=== PATIENT | female | born 1980 | race Caucasian/White ===

== ENCOUNTER 2025-05-29 13:56 | Outpatient (AMB) | payer OTHER, MEDICAID, SELFPAY ==
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
[2025-05-29 14:04] VITALS: BP 114/72; PULSE 73; RESP 16; TEMP 36.2; O2SAT 98; BMI 32.7
--- OUTSIDE RECORDS SUMMARY | 2025-05-30 03:26 | XMS_ITS | Continuity of Care Document ---
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 Role Phone HAMILTON MARROQUIN Primary Care Provider HAMILTON MARROQUIN Referring Provider Assessment Encounter Date Assessment Date Assessment LastModified by Organization Details LastModified Time 04/14/2025 04/14/2025 Visit With: FORREST Velasquez Use of Antihistamine s: No If yes: Vial Test Change in medications: No If yes Increase in asthma symptoms If yes, inhaler use: Reaction to last injections: No If yes: Allergy Symptoms: Other: Missed: Dose Aware of Vial Test Aware: Notes: robert Not available 04/14/2025 10:36:41 Plan of Treatment Reminders Order Date Submit Date Provider Last Modified By Organization Details Last Modified Time Details Appointments None record ed. Lab None record ed. Referral None record ed. Procedures None record ed. Surgeries None record ed. Imaging None record ed. Medication Orders None record ed. Patient TargetsNo targets recorded. Patient InstructionsNo instructions recorded. Reason for Referral None Reported. Problems Name Problem SNOMED Code Status Onset Date Resolution Date Notes Provider Name and Address Organization Details Recorded Time Postopera tive follow-up visit Active 2013 Post op; Note: Date Diagnosed : 4 12:20 PM (V67.00) Not Available [facility] 4 02:54:41 Hypertrop hy of nasal turbinate s 52089940 Active 2013 Nasal turbinate hypertrop hy Not Available [facility] 4 01:11:18 Deviated nasal septum 276509631 Active 2013 Nasal septal deviation Septal deviation / Deflectio n; Note: Date Diagnosed : 4 11:43 AM (470) Note: Date Diagnosed : 4 11:43 AM (470) ; Start Date : 4 [facility] Available [facility] 01:11:19 Allergic rhinitis 21164812 Active 2023 ANNE CASTILLO PA-C [address], [place], [address] , [facility] 4 13:36:24 Seasonal allergic rhinitis 878995991 Active 2023 ANNE CASTILLO PA-C [address], [place], [address] , [facility] 4 13:36:24 Non-aller gic rhinitis [id number] 1 Active 2023 ANNE CASTILLO PA-C [address],[place] [facility], [place], [address] , [facility] 4 13:36:24 Perennial allergic rhinitis 197727501 Active 2023 VANESA GILBERTO, [facility] [address],[place] [facility], [facility] [place], [address] , [facility] 5 11:27:54 Bacterial conjuncti vitis 652064243 Active 2024 TERRANCE MARRERO PA-C [address], [place], [address] , [facility] 5 10:03:46 Problem Notes None recorded. Procedures Surgical History Date Name Laterality Status Provider Name and Address Organization Details Recorded Time 05/23/20 25 Allergy Immunotherapy Injections completed Kristen Alanis [address], [place], [address], [facility] 05/23/2025 11:17:00 05/16/20 25 Allergy Immunotherapy Injections completed BACILIO MENDOZA RN [address], [place], [address], [place] [facility] 05/16/2025 13:47:58 05/09/20 25 Allergy Immunotherapy Injections completed FORREST JOY [address], [place], [address], [place] [facility] 05/09/2025 11:07:15 05/02/20 25 Allergy Immunotherapy Injections completed FORREST JOY [address], [place], [address], [place] [facility] 05/02/2025 11:57:44 04/20/20 25 Allergy Immunotherapy Injections completed VANESA EUBANKS RMA [address], [place], [address], [place] [facility] 04/20/2025 11:28:36 04/14/20 25 Allergy Immunotherapy Injections completed VANESA EUBANKS RMA [address], [place], [address], [place] [facility] 04/14/2025 10:36:34 03/28/20 25 Allergy Immunotherapy Injections active Kristen Alanis [address], [place], [address], [place] [facility] 03/28/2025 14:55:44 03/21/20 25 Allergy Immunotherapy Injections completed FORREST JOY [address], [place], [address], [place] [facility] 03/21/2025 13:39:49 03/15/20 25 Allergy Immunotherapy Injections completed VANESA EUBANKS, RMA [address], [place], [address], [place] [facility] 03/15/2025 14:07:06 02/23/20 25 Allergy Immunotherapy Injections completed VANESA EUBANKS, RMA [address], [place], [address], [place] [facility] 02/22/2025 09:58:06 02/16/20 25 Allergy Immunotherapy Injections completed Kristen Zeke [address], [place], [address], [place] [facility] 02/15/2025 11:12:02 02/08/20 25 Allergy Immunotherapy Injections completed VANESA JOSSELINZEC, RMA [address], [place], [address], [place] [facility] 02/07/2025 11:15:16 02/01/20 25 Allergy Immunotherapy Injections completed VANESA KORZEC, RMA [address], [place], [address], [place] [facility] 01/31/2025 13:40:41 01/26/20 25 Allergy Immunotherapy Injections completed AYSE JACINTO RMA [address], [place], [address], [place] [facility] 01/25/2025 13:59:25 01/18/20 25 Allergy Immunotherapy Injections completed VANESA KORZEC, RMA [address] [place] [address], [address], [place] [facility] 01/17/2025 13:57:21 01/11/20 25 Allergy Immunotherapy Injections completed VANESA JOSSELINZEC, RMA [address] [place] [address], [address], [place] [facility] 01/10/2025 15:43:41 01/06/20 25 Allergy Immunotherapy Injections completed VANESA KORZEC, RMA [address] [place] [address], [address], [place] [facility] 01/05/2025 11:20:03 12/28/19 25 Allergy Immunotherapy Injections completed VANESA KORZEC, RMA [address] [place] [address], [address], [place] [facility] 12/27/2024 11:13:35 12/22/19 25 Allergy Immunotherapy Injections completed AYSE JACINTO RMA [address], [place], [address], [place] [facility] 12/21/2024 13:28:40 12/14/19 25 Allergy Immunotherapy Injections completed BACILIO MENDOZA RN [address], [place], [address], [facility] 12/13/2024 14:28:43 12/08/19 25 Allergy Immunotherapy Injections completed VANESA EUBANKS, RMA [address], [place], [address], [place] [facility] 12/07/2024 11:05:33 11/30/19 25 Allergy Immunotherapy Injections completed BACILIO MENDOZA RN [address], [place], [address], [place] [facility] 11/29/2024 15:05:15 11/23/19 25 Allergy Immunotherapy Injections completed VANESA EUBANKS, RMA [address], [place], [address], [place] [facility] 11/22/2024 14:23:10 11/16/19 25 Allergy Immunotherapy Injections completed VANESA EUBANKS, RMA [address], [place], [address], [facility] 11/15/2024 16:32:53 11/09/19 25 Allergy Immunotherapy Injections completed VANESA EUBANKS, RMA [address], [place], [address], [facility] 11/08/2024 14:19:47 11/02/19 25 Allergy Immunotherapy Injections completed FORREST JOY [address], [place], [address], [facility] 11/01/2024 14:29:07 10/26/19 25 Allergy Immunotherapy Injections completed VANESA EUBANKS RMA [address], [place], [address], [place] [facility] 10/25/2024 14:49:37 10/19/19 25 Allergy Immunotherapy Injections completed FORREST JOY [address], [place], [address], [place] [facility] 10/18/2024 16:37:39 10/12/19 25 Allergy Immunotherapy Injections completed BACILIO MENDOZA RN [address], [place], [address], [place] [facility] 10/11/2024 10:42:29 10/06/19 25 Allergy Immunotherapy Injections completed FORREST JOY [address], [place], [address], [place] [facility] 10/05/2024 13:53:31 09/28/19 25 Allergy Immunotherapy Injections completed FORREST JOY [address], [place], [address], [place] [facility] 09/27/2024 15:32:03 09/22/19 25 Allergy Immunotherapy Injections completed FORREST JOY [address], [place], [address], [place] [facility] 09/21/2024 11:02:30 09/15/19 25 Allergy Immunotherapy Injections completed FORREST VELASQUEZ [address] [place] [address], [address], [place] [facility] 09/14/2024 10:17:23 09/06/19 25 Allergy Immunotherapy Injections completed FORREST JOY [address] [place] [address], [address], [place] [facility] 09/06/2024 13:16:45 08/30/19 25 Allergy Immunotherapy Injections completed BACILIO MENDOZA RN [address] [place] [address], [address], [place] [facility] 08/30/2024 13:52:24 08/23/19 25 Allergy Immunotherapy Injections completed VANESA EUBANKS RMA [address] [place] [address], [address], [place] [facility] 08/23/2024 14:55:08 08/09/19 25 Allergy Immunotherapy Injections completed BACILIO MENDOZA RN [address], [place], [address], [place] [facility] 08/09/2024 15:22:41 08/02/19 25 Allergy Immunotherapy Injections completed VANESA EUBANKS, RMA [address], [place], [address], [place] [facility] 08/02/2024 15:04:00 07/19/19 25 Allergy Immunotherapy Injections completed VANESA EUBANKS, RMA [address], [place], [address], [place] [facility] 07/19/2024 15:23:58 07/12/20 24 Allergy Immunotherapy Injections completed BACILIO MENDOZA RN [address], [place], [address], [place] [facility] 07/12/2024 13:45:49 06/28/20 24 Allergy Immunotherapy Injections completed FORREST JOY [address], [place], [address], [place] [facility] 06/28/2024 15:47:41 06/21/20 24 Allergy Immunotherapy Injections completed VANESA EUBANKS, RMA [address], [place], [address], [place] [facility] 06/21/2024 15:48:40 06/14/20 24 Allergy Immunotherapy Injections completed BACILIO MENDOZA RN [address] [place] [address], [address], [place] [facility] 06/14/2024 16:08:49 06/07/20 24 Allergy Immunotherapy Injections completed FORREST JOY [address], [place], [address], [place] [facility] 06/07/2024 14:26:02 05/31/20 24 Allergy Immunotherapy Injections completed VANESA EUBANKS RMA [address], [place], [address], [place] [facility] 05/31/2024 11:54:08 05/19/20 24 Allergy Immunotherapy Injections completed FORREST JOY [address], [place], [address], [place] [facility] 05/19/2024 16:27:30 05/13/20 24 Allergy Immunotherapy Injections completed VANESA EUBANKS, RMA [address], [place], [address], [place] [facility] 05/13/2024 15:25:52 05/04/20 24 Allergy Immunotherapy Injections completed BACILIO MENDOZA RN [address], [place], [address], [place] [facility] 05/04/2024 14:55:11 04/27/20 24 Allergy Immunotherapy Injections completed AYSE JACINTO RMA [address], [place], [address], [place] [facility] 04/27/2024 11:50:31 04/15/20 24 Allergy Immunotherapy Injections completed SHERRI JOYA [address], [place], [address], [place] [facility] 04/15/2024 13:28:07 04/07/20 24 Allergy Immunotherapy Injections completed VANESA EUBANKS, RMA [address], [place], [address], [place] [facility] 04/07/2024 15:08:26 03/16/20 24 Allergy Immunotherapy Injections completed VAENSA EUBANKS RMA [address], [place], [address], [place] [facility] 03/16/2024 15:48:00 03/09/20 24 Allergy Immunotherapy Injections completed VANESA EUBANKS RMA [address], [place], [address], [place] [facility] 03/09/2024 16:03:35 03/01/20 24 Allergy Immunotherapy Injections completed AYSE JACINTO RMA [address], [place], [address], [place] [facility] 03/01/2024 14:19:16 02/23/20 24 Allergy Immunotherapy Injections completed VANESA EUBANKS, RMA [address], [place], [address], [place] [facility] 02/23/2024 14:52:37 02/16/20 24 Allergy Immunotherapy Injections completed VANESA EUBANKS, RMA [address], [place], [address], [place] [facility] 02/16/2024 16:09:42 02/09/20 24 Allergy Immunotherapy Injections completed BACILIO MENDOZA RN [address], [place], [address], [place] [facility] 02/09/2024 15:05:18 02/02/20 24 Allergy Immunotherapy Injections completed BACILIO MENDOZA RN [address], [place], [address], [place] [facility] 02/02/2024 11:23:37 01/26/20 24 Allergy Immunotherapy Injections completed FORREST JOY [address], [place], [address], [place] [facility] 01/26/2024 14:21:13 01/12/20 24 Allergy Immunotherapy Injections completed FORREST JOY [address], [place], [address], [place] [facility] 01/12/2024 10:31:59 01/04/20 24 Allergy Immunotherapy Injections completed FORREST JOY [address], [place], [address], [place] [facility] 01/04/2024 08:57:22 06/10/20 21 hysterectomy completed Monica Bonner [place] [facility] 12/15/2023 11:32:03 05/13/20 08 appendectomy completed Monica Bonner [place] [facility] 12/15/2023 11:34:07 07/13/18 90 tonsillectomy completed Monica Bonner [place] [facility] 12/15/2023 11:33:40 Imaging Results None recorded. Procedure Notes None recorded. Medical Equipment None Reported. Allergies No known drug allergies Medications Name Sig Start Date Stop Date Status Note LastModified by Organization Details LastModified Time atorvasta tin 10 mg tablet TAKE 1 TABLET BY MOUTH DAILY NEEDED FOR HIGH CHOLESTE ROL active Not Available Not Available No t Available ibuprofen 800 mg tablet 12/14 completed Medicati on ID: [id number] Du ration Value: 21 Brand Name: ibuprofe n Send Method: E-Prescr ibed Sub s Allowed: subs LIZBETH Colemani al Instruct ion: TAKE 1 TABLET BY MOUTH 3 TIMES A DAY Medi cationGe nericNam e: ibuprofe n Medica tion ID: [id number] Du ration Value: 21 Brand Name: ibuprofe n Send Method: E-Prescr ibed Sub s Allowed: subs OK Speci al Instruct ion: TAKE 1 TABLET BY MOUTH 3 TIMES A DAY Medi cationGe nericNam e: ibuprofe n Not Available Not Available Not Available fluconazo le 150 mg tablet TAKE 1 TABLET BY MOUTH ONCE 03/07 completed Not Available Not Available Not Available sulfameth oxazole 400 mg-trimet hoprim 80 mg tablet TAKE 1 TABLET BY MOUTH TWICE A DAY FOR 7 DAYS 03/07 completed Not Available Not Available Not Available hydrocodo ne 5 mg-acetam inophen 325 mg tablet 12/14 completed Medicati on ID: [id number] Du ration Value: 5 Brand Name: hydrocod one-acet aminophe n Send Method: E-Prescr ibed Sub s Allowed: subs OK Speci al Instruct ion: TAKE 1 TABLET BY MOUTH EVERY 4 HOURS NEEDED FOR PAIN Med icationG enericNa me: hydrocod one-acet aminophe n Medica tion ID: [id number] Du ration Value: 5 Brand Name: hydrocod one-acet aminophe n Send Method: E-Prescr ibed Sub s Allowed: subs LIZBETH Colemani al Instruct ion: TAKE 1 TABLET BY MOUTH EVERY 4 HOURS NEEDED FOR PAIN Med icationG enericNa me: hydrocod one-acet aminophe n Not Available Not Available Not Available meloxicam 15 mg tablet TAKE 1 TABLET BY MOUTH EVERY DAY FOR 30 DAYS 03/07 completed Not Available Not Available Not Available metronida zole 0.75 % (37.5 mg/5 gram) vaginal gel INSERT 1 APPLICAT OR VAGINALL Y AT BEDTIME X 5 NIGHTS. 03/07 completed Not Available Not Available Not Available prednison e 20 mg tablet TAKE 1 TABLET BY MOUTH EVERY DAY FOR 5 DAYS 03/07 completed Not Available Not Available Not Available permethri n 5 % topical cream PLEASE SEE ATTACHED FOR DETAILED DIRECTIO NS 03/07 completed Not Available Not Available Not Available metronida zole 500 mg tablet TAKE 1 TABLET BY MOUTH 2 TIMES A DAY FOR 7 DAYS. DO NOT DRINK ALCOHOL WHILE TAKING THIS MEDICATI ON active Not Available Not Available No t Available hydroxyzi ne HCl 50 mg tablet TAKE 1 TABLET (ORAL) EVERY DAY AT BEDTIME ( NEEDED FOR ITCHING) FOR 5 DAYS 03/07 completed Not Available Not Available Not Available doxepin 10 mg capsule TAKE 1 CAPSULE BY MOUTH EVERY NIGHT 03/07 completed Not Available Not Available Not Available lorazepam 0.5 mg tablet 12/14 completed Medicati on ID: [id number] Du ration Value: 30 Brand Name: surendraazepa m Send Method: E-Prescr ibed Sub s Allowed: subs OK Speci al Instruct ion: TAKE 1 TABLET BY MOUTH AT BEDTIME Medicati onGeneri cName: lorazepa m Medica tion ID: [id number] Du ration Value: 30 Brand Name: lorazepa m Send Method: E-Prescr ibed Sub s Allowed: subs OK Speci al Instruct ion: TAKE 1 TABLET BY MOUTH AT BEDTIME Medicati onGeneri cName: lorazepa m Not Available Not Available Not Available polymyxin B sulfate 10,000 unit-trim ethoprim 1 mg/mL eye drops INSTILL 2 DROPS INTO AFFECTED EYE(S) BY OPHTHALM IC ROUTE EVERY 6 HOURS x 7 days active Not Available Not Available No t Available betametha sone dipropion ate 0.05 % topical cream APPLY TOPICALL Y TO AFFECTED AREA TWO TIMES A DAY FOR 10 DAYS 03/07 completed Not Available Not Available Not Available clindamyc in 2 % vaginal cream PLACE 1 APPLICAT OR (5 G TOTAL) VAGINALL Y NIGHTLY AT BEDTIME FOR 7 DAYS. 03/07 completed Not Available Not Available Not Available epinephri ne 0.3 mg/0.3 mL injection , auto-inje ctor INJECT 1 PEN NEEDED FOR ANAPHYLA XIS 2024 active Not Available Not Available Not Avai lable methylpre dnisolone 4 mg tablets in a dose pack 12/14 completed Medicati on ID: [id number] Du ration Value: 6 Brand Name: methylpr ednisolo ne Send Method: E-Prescr ibed Sub s Allowed: subs OK Speci al Instruct ion: TAKE DIRECTED ON PATIENT INSTRUCT ION CARD. Me dication GenericN chuck: methylpr ednisolo ne Medic ation ID: [id number] Du ration Value: 6 Brand Name: methylpr ednisolo ne Send Method: E-Prescr ibed Sub s Allowed: subs OK Speci al Instruct ion: TAKE DIRECTED ON PATIENT INSTRUCT ION CARD. Me dication GenericN chuck: methylpr ednisolo ne Not Available Not Available Not Available Percocet 5 mg-325 mg tablet 1-2 tablet by mouth 12/14 completed Medicati on ID: [id number] Pr escribed By Name: Bret Yip MD Brand Name: Percocet Send Method: E-Prescr ibed Sub s Allowed: subs OK Medic ationGen ericName : Percocet Medicat ion ID: [id number] Pr escribed By Name: Bret Yip MD Brand Name: Percocet Send Method: E-Prescr ibed Sub s Allowed: subs OK Medic ationGen ericName : Percocet Not Available Not Available Not Available topiramat e 100 mg tablet TAKE 1 TO 1.5 TABS DAILY AT BEDTIME active Not Available Not Available No t Available sertralin e 50 mg tablet TAKE 1 TABLET BY MOUTH EVERY DAY active Not Available Not Available No t Available medroxypr ogesteron e 150 mg/mL intramusc ular suspensio n 12/14 completed Medicati on ID: [id number] Du ration Value: 90 Brand Name: medroxyp rogester one Send Method: E-Prescr ibed Sub s Allowed: subs OK Speci al Instruct ion: INJECT 1 ML INTRAMUS CULARLY ONCE Med icationG enericNa me: medroxyp rogester one Medi cation ID: [id number] Du ration Value: 90 Brand Name: medroxyp rogester one Send Method: E-Prescr ibed Sub s Allowed: subs OK Speci al Instruct ion: INJECT 1 ML INTRAMUS CULARLY ONCE Med icationG enericNa me: medroxyp rogester one Not Available Not Available Not Available topiramat e 50 mg tablet TAKE 2-3 TABLET BY MOUTH DAILY AT BEDTIME 03/07 completed Not Available Not Available Not Available nitrofura ntoin monohydra te/macroc rystals 100 mg capsule TAKE 1 CAPSULE BY MOUTH TWICE A DAY FOR 5 DAYS 03/07 completed Not Available Not Available Not Available sertralin e 03/07 completed Not Available Not Available Not Available estradiol active Not Available Not Maria Elena ilable Not Available famotidin e 03/07 completed Not Available Not Available Not Available topiramat e 03/07 completed Not Available Not Available Not Available epinephri ne 0.3 mg/0.3 mL injection syringe Use as needed for allergic reaction . 03/07 completed Not Available Not Available Not Available Deonna Allergy 180 mg tablet Take 1 tablet twice a day by oral route. active Not Available Not Available No t Available Yuvafem [address] TABLET VAGINALL Y 2 TIMES A WEEK. active Not Available Not Available No t Available Vitals None Recorded Social History None recorded. Functional Status None recorded. Mental Status None recorded. Family History Nothing Reported. Medical History Condition Response Allergies/Hayfever Y High Cholesterol Y Gynecological HistoryNo gynecological history recorded. Obstetrics History GPAL:G 0 P 0 0 0 0 Past Encounters Encounter ID Performer Location Encounter Start Date Encounter Closed Date Diagnosis/Indication Diagnosis SNOMED-CT Code Diagnosis ICD10 Code Diagnosis IMO Codes Diagnosis Note [id number] VANESA EUBANKS RMA Allergy 100 [facility] [address] [place] [address] 03/15/2025 14:06:12 03/15/2025 14:07:29 Perennial allergic rhinitis 994032435 J30.89 [id number] AYSE JACINTO A Allergy 100 [facility] it [address] [place] [address] 03/21/2025 13:38:43 03/21/2025 13:40:21 Perennial allergic rhinitis [id number] J30.89 [id number] VANESA MACIAS, RMA Allergy 100 [facility], ite [address] [place] [address] 04/14/2025 10:23:52 04/14/2025 10:37:24 Perennial allergic rhinitis 234017064 J30.89 Health Concerns Section Related Observation LastModified by Organization Detai ls LastModified Time None Recorded Concern Status LastModified by Organization Details LastModified Time None Recorded Payers Encounter Date Sequence Insurance Name Policy Number Policy [id number] Covered Member ID [id number] Member ID Guarantor Name 04/14/2025 1 [facility] [place] [place] [id number] Monica Bonner [id number] Monica Bonner OBGyn Episode No OBEpisode recorded.
--- OUTSIDE RECORDS SUMMARY | 2025-05-30 03:26 | XMS_ITS | Continuity of Care Document ---
Author Organization [place] [facility], Allergy Address [address] [place] [address] Care Team Providers Care [place] [place] Manager Name Role Phone HAMILTON MARROQUIN Primary Care Provider [phone] HAMILTON MARROQUIN Referring Provider Assessment Encounter Date Assessment Date Assessment LastModified by Organization Details LastModified Time 05/09/2025 05/09/2025 Visit With: Maira Taylor Use of Antihistamine s: No If yes: Vial Test Change in medications: No If yes Increase in asthma symptoms If yes, inhaler use: Reaction to last injections: No If yes: Allergy Symptoms: Other: Missed: Dose Aware of Vial Test Aware: Notes: [email or web address] Not available 05/09/2025 11:07:20 Plan of Treatment Reminders Order Date Submit [...] : 4 12:20 PM (V67.00) Not Available [facility] 4 02:54:41 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 - [facility] [place] 4 13:36:24 Seasonal allergic rhinitis 522757609 Active 2023 ANNE CASTILLO PA-C [address] [facility] [address],[place] [address], [facility] [place], [address] , [facility] - [facility] [place] 4 13:36:24 Non-aller gic rhinitis [id number] 1 Active 2023 ANNE CASTILLO PA-C [address] [facility] [place] [facility], [place], [address] , [facility] - [facility] [place] 4 13:36:24 Perennial allergic rhinitis 926581460 Active 2023 VANESA MACIAS, [facility] [address] [facility] [address],[place] [address], [place], [address] , [facility] - [facility] [place] 5 11:27:54 Bacterial conjuncti vitis 010007013 Active 2024 TERRANCE MARRERO PA-C [address] [facility] [place] [facility], [place], [address] , [facility] - [facility] [place] 5 10:03:46 Problem Notes None recorded. Procedures Surgical History Date Name Laterality Status Provider Name and Address Organization Details Recorded Time 05/23/20 25 Allergy Immunotherapy Injections completed Kristen Alanis [address],[place] [facility], [place], [address], [facility] - [facility] [place] 05/23/2025 11:17:00 05/16/20 25 Allergy Immunotherapy Injections completed BACILIO MENDOZA RN [address],[place] [address], [place], [address], [place] [facility] [place] 05/16/2025 13:47:58 05/09/20 25 Allergy Immunotherapy Injections completed FORREST JOY [address],[place] [address], [place], [address], [place] [facility] [place] 05/09/2025 11:07:15 05/02/20 25 Allergy Immunotherapy Injections completed FORREST JOY [address],[place] [address], [place], [address], [place] [facility] [place] 05/02/2025 11:57:44 04/20/20 25 Allergy Immunotherapy Injections completed FORREST MORELOS [address],[place] [address], [place], [address], [place] [facility] [place] 04/20/2025 11:28:36 04/14/20 25 Allergy Immunotherapy Injections completed FORREST MORELOS [address],[place] [address], [place], [address], [place] [facility] [place] 04/14/2025 10:36:34 03/28/20 25 Allergy Immunotherapy Injections active Kristen Alanis [address],[place] [address], [place], [address], [place] [facility] [place] 03/28/2025 14:55:44 03/21/20 25 Allergy Immunotherapy Injections completed FORREST JOY [address],[place] [address], [place], [address], [place] [facility] [place] 03/21/2025 13:39:49 03/15/20 25 Allergy Immunotherapy Injections completed VANESA EUBANKS, RMA [address],[place] [address], [place], [address], [place] [facility] [place] 03/15/2025 14:07:06 02/23/20 25 Allergy Immunotherapy Injections completed VANESA EUBANKS, RMA [address],[place] [address], [place], [address], [place] [facility] [place] 02/22/2025 09:58:06 02/16/20 25 Allergy Immunotherapy Injections completed Kristen Alanis [address],[place] [address], [place], [address], [place] [facility] [place] 02/15/2025 11:12:02 02/08/20 25 Allergy Immunotherapy Injections completed VANESA KORZEC, RMA [address],[place] [address], [place], [address], [place] [facility] [place] 02/07/2025 11:15:16 02/01/20 25 Allergy Immunotherapy Injections completed VANESA KORZEC, RMA [address],[place] [address], [place], [address], [place] [facility] [place] 01/31/2025 13:40:41 01/26/20 25 Allergy Immunotherapy Injections completed MAIRA TAYLOR RMA [address],[place] [address], [place], [address], [place] [facility] [place] 01/25/2025 13:59:25 01/18/20 25 Allergy Immunotherapy Injections completed VANESA KORZEC, RMA [address],[place] [address] [place] [address], [address], [place] [facility] [place] 01/17/2025 13:57:21 01/11/20 25 Allergy Immunotherapy Injections completed VANESA JOSSELINZEC, RMA [address],[place] [address], [place], [address], [facility] - [facility] [place] 01/10/2025 15:43:41 01/06/20 25 Allergy Immunotherapy Injections completed VANESA KORZEC, RMA [address],[place] [address], [place], [address], [place] [facility] [place] 01/05/2025 11:20:03 12/28/19 25 Allergy Immunotherapy Injections completed VANESA KORZEC, RMA [address] [address], [place], [address], [place] [facility] [place] 12/27/2024 11:13:35 12/22/19 25 Allergy Immunotherapy Injections completed MAIRA TAYLOR RMA [address] [address], [place], [address], [place] [facility] [place] 12/21/2024 13:28:40 12/14/19 25 Allergy Immunotherapy Injections completed BACILIO MENDOZA RN [address],[place] [address], [place], [address], [place] [facility] [place] 12/13/2024 14:28:43 12/08/19 25 Allergy Immunotherapy Injections completed VANESA MACIASC, RMA [address] [address], [place], [address], [place] [facility] [place] 12/07/2024 11:05:33 11/30/19 25 Allergy Immunotherapy Injections completed BACILIO MENDOZA RN [address],[place] [address], [place], [address], [place] [facility] [place] 11/29/2024 15:05:15 11/23/19 25 Allergy Immunotherapy Injections completed VANESA EUBANKS, RMA [address],[place] [address], [place], [address], [place] [facility] [place] 11/22/2024 14:23:10 11/16/19 25 Allergy Immunotherapy Injections completed VANESA MACIASC, RMA [address],[place] [address] [place] [address], [address], [place] [facility] [place] 11/15/2024 16:32:53 11/09/19 25 Allergy Immunotherapy Injections completed VANESA EUBANKS, RMA [address],[place] [address] [place] [address], [address], [place] [facility] [place] 11/08/2024 14:19:47 11/02/19 25 Allergy Immunotherapy Injections completed SHERRI JOYA [address],[place] [address], [place], [address], [place] [facility] [place] 11/01/2024 14:29:07 10/26/19 25 Allergy Immunotherapy Injections completed VANESA EUBANKS, RMA [address],[place] [address], [place], [address], [place] [facility] [place] 10/25/2024 14:49:37 10/19/19 25 Allergy Immunotherapy Injections completed SHERRI JOYA [address],[place] [address], [place], [address], [place] [facility] [place] 10/18/2024 16:37:39 10/12/19 25 Allergy Immunotherapy Injections completed BACILIO MENDOZA RN [address],[place] [address], [place], [address], [place] [facility] [place] 10/11/2024 10:42:29 10/06/19 25 Allergy Immunotherapy Injections completed FORREST JOY [address],[place] [address], [place], [address], [place] [facility] [place] 10/05/2024 13:53:31 09/28/19 25 Allergy Immunotherapy Injections completed FORREST JOY [address],[place] [address], [place], [address], [place] [facility] [place] 09/27/2024 15:32:03 09/22/19 25 Allergy Immunotherapy Injections completed FORREST JOY [address],[place] [address], [place], [address], [place] [facility] [place] 09/21/2024 11:02:30 09/15/19 25 Allergy Immunotherapy Injections completed FORREST MORELOS [address],[place] [address] [place] [address], [address], [place] [facility] [place] 09/14/2024 10:17:23 09/06/19 25 Allergy Immunotherapy Injections completed FORREST JOY [address],[place] [address] [place] [address], [address], [place] [facility] [place] 09/06/2024 13:16:45 08/30/19 25 Allergy Immunotherapy Injections completed BACILIO MENDOZA RN [address],[place] [address] [place] [address], [address], [place] [facility] [place] 08/30/2024 13:52:24 08/23/19 25 Allergy Immunotherapy Injections completed FORREST MORELOS [address],[place] [address], [place], [address], [place] [facility] [place] 08/23/2024 14:55:08 08/09/19 25 Allergy Immunotherapy Injections completed BACILIO MENDOZA RN [address],[place] [address], [place], [address], [place] [facility] [place] 08/09/2024 15:22:41 08/02/19 25 Allergy Immunotherapy Injections completed VANESA KORZEC, RMA [address] [address], [place], [address], [place] [facility] [place] 08/02/2024 15:04:00 07/19/19 25 Allergy Immunotherapy Injections completed VANESA EUBANKS, RMA [address] [address], [place], [address], [place] [facility] [place] 07/19/2024 15:23:58 07/12/20 24 Allergy Immunotherapy Injections completed BACILIO MENDOZA RN [address] [address], [place], [address], [place] [facility] [place] 07/12/2024 13:45:49 06/28/20 24 Allergy Immunotherapy Injections completed FORREST JOY [address],[place] [address], [place], [address], [place] [facility] [place] 06/28/2024 15:47:41 06/21/20 24 Allergy Immunotherapy Injections completed VANESA EUBANKS, RMA [address] [address], [place], [address], [place] [facility] [place] 06/21/2024 15:48:40 06/14/20 24 Allergy Immunotherapy Injections completed BACILIO MENDOZA RN [address],[place] [address] [place] [address], [address], [place] [facility] [place] 06/14/2024 16:08:49 06/07/20 24 Allergy Immunotherapy Injections completed FORREST JOY [address],[place] [address] [place] [address], [address], [place] [facility] [place] 06/07/2024 14:26:02 05/31/20 24 Allergy Immunotherapy Injections completed VANESA EUBANKS RMA [address] [address], [place], [address], [place] [facility] [place] 05/31/2024 11:54:08 05/19/20 24 Allergy Immunotherapy Injections completed FORREST JOY [address],[place] [address], [place], [address], [place] [facility] [place] 05/19/2024 16:27:30 05/13/20 24 Allergy Immunotherapy Injections completed VANESA EUBANKS, RMA [address],[place] [address], [place], [address], [place] [facility] [place] 05/13/2024 15:25:52 05/04/20 24 Allergy Immunotherapy Injections completed BACILIO MENDOZA RN [address],[place] [address], [place], [address], [place] [facility] [place] 05/04/2024 14:55:11 04/27/20 24 Allergy Immunotherapy Injections completed MAIRA TAYLOR RMA [address],[place] [address], [place], [address], [place] [facility] [place] 04/27/2024 11:50:31 04/15/20 24 Allergy Immunotherapy Injections completed SHERRI JOYA [address] [address], [place], [address], [place] [facility] [place] 04/15/2024 13:28:07 04/07/20 24 Allergy Immunotherapy Injections completed VANESA EUBANKS, RMA [address] [address], [place], [address], [place] [facility] [place] 04/07/2024 15:08:26 03/16/20 24 Allergy Immunotherapy Injections completed VANESA EUBANKS RMA [address] [address], [place], [address], [place] [facility] [place] 03/16/2024 15:48:00 03/09/20 24 Allergy Immunotherapy Injections completed VANESA EUBANKS RMA [address] [address], [place], [address], [place] [facility] [place] 03/09/2024 16:03:35 03/01/20 24 Allergy Immunotherapy Injections completed MAIRA TAYLOR RMA [address], [place], [address], [place] [facility] [place] 03/01/2024 14:19:16 02/23/20 24 Allergy Immunotherapy Injections completed VANESA EUBANKS, RMA [address] [address], [place], [address], [place] [facility] [place] 02/23/2024 14:52:37 02/16/20 24 Allergy Immunotherapy Injections completed VANESA EUBANKS, RMA [address] [address], [place], [address], [place] [facility] [place] 02/16/2024 16:09:42 02/09/20 24 Allergy Immunotherapy Injections completed BACILIO MENDOZA RN [address],[place] [address], [place], [address], [place] [facility] [place] 02/09/2024 15:05:18 02/02/20 24 Allergy Immunotherapy Injections completed BACILIO MENDOZA RN [address],[place] [address], [place], [address], [place] [facility] [place] 02/02/2024 11:23:37 01/26/20 24 Allergy Immunotherapy Injections completed MAIRA TAYLOR, [facility] [address],[place] [address], [place], [address], [place] [facility] 01/26/2024 14:21:13 01/12/20 24 Allergy Immunotherapy Injections completed FORREST JOY [address],[place] [facility], [place], [address], [place] [facility] [place] 01/12/2024 10:31:59 01/04/20 24 Allergy Immunotherapy Injections completed FORREST JOY [address],[place] [address] [place] [address], [address], [place] [facility] [place] 01/04/2024 08:57:22 06/10/20 21 hysterectomy completed Monica Bonner [place] [facility] 12/15/2023 11:32:03 05/13/20 08 appendectomy completed Monica Bonner [place] [facility] 12/15/2023 11:34:07 07/13/18 90 tonsillectomy completed Monica Bonner [place] [facility] [place] 12/15/2023 11:33:40 Imaging Results None recorded. Procedure Notes None recorded. Medical Equipment None Reported. Allergies No known drug allergies Medications Name Sig Start Date Stop Date Status Note LastModified by Organization Details LastModified Time atorvasta tin 10 mg tablet TAKE 1 TABLET BY MOUTH DAILY NEEDED FOR HIGH CHOLESTE ROL active Not Available Not Available No t Available ibuprofen 800 mg tablet 11/14/ 2014 06/04 /2024 completed Medicati on ID: [id number] Du ration Value: 21 Brand Name: ibuprofe n Send Method: E-Prescr ibed Sub s Allowed: subs OK Speci al Instruct ion: TAKE 1 TABLET BY MOUTH 3 TIMES A DAY Medi cationGe nericNam e: ibuprofe n Medica tion ID: [id number] Du ration Value: 21 Brand Name: ibuprofe [...] mg tablet 12/14 completed Medicati on ID: [id number] Du ration Value: 5 Brand Name: hydrocod one-acet aminophe n Send Method: E-Prescr ibed Sub s Allowed: subs OK Speci al Instruct ion: TAKE 1 TABLET BY MOUTH EVERY 4 HOURS NEEDED FOR PAIN Med icationG enericNa me: hydrocod one-acet aminophe n Medica tion ID: [id number] Du ration Value: 5 Brand Name: hydrocod [...] mg tablet 12/14 completed Medicati on ID: [id number] Du ration Value: 30 Brand Name: lorazepa m Send Method: E-Prescr ibed Sub s Allowed: subs OK Speci al Instruct ion: TAKE 1 TABLET BY MOUTH AT BEDTIME Medicati onGeneri cName: lorazepa m Medica tion ID: [id number] Du ration Value: 30 Brand Name: lorazepa [...] dose pack 12/14 completed Medicati on ID: [id number] Du ration Value: 6 Brand Name: methylpr ednisolo ne Send Method: E-Prescr ibed Sub s Allowed: subs OK Speci al Instruct ion: TAKE DIRECTED ON PATIENT INSTRUCT ION CARD. Me dication GenericN chuck: methylpr ednisolo ne Medic ation ID: [id number] Du ration Value: 6 Brand Name: methylpr ednisolo ne Send Method: E-Prescr ibed Sub s Allowed: subs OK Speci al Instruct ion: TAKE DIRECTED ON PATIENT INSTRUCT ION CARD. Me dication GenericN chuck: methylpr ednisolo ne Not Available Not Available Not Available Percocet 5 mg-325 mg tablet 1-2 tablet by mouth 12/14 completed Medicati on ID: [id number] Pr escribed By Name: Bret Yip MD Brand Name: Percocet Send Method: E-Prescr ibed Sub s Allowed: subs OK Medic ationGen ericName : Percocet Medicat ion ID: [id number] Pr escribed By Name: Bret Yip MD [...] suspensio n 12/14 completed Medicati on ID: [id number] Du ration Value: 90 Brand Name: medroxyp rogester one Send Method: E-Prescr ibed Sub s Allowed: subs OK Speci al Instruct ion: INJECT 1 ML INTRAMUS CULARLY ONCE Med icationG enericNa me: medroxyp rogester one Medi cation ID: [id number] Du ration Value: 90 Brand Name: medroxyp [...] ICD10 Code Diagnosis IMO Codes Diagnosis Note [id number] VANESA MACIAS, RMA Allergy [address] [place] [address] 100 [place] [address] 04/14/2025 10:23:52 04/14/2025 10:37:24 Perennial allergic rhinitis [id number] J30.89 [id number] VANESA GILBERTO, RMA Allergy [address] [place] [address] [address] [place] [address] 04/20/2025 11:27:23 04/20/2025 11:29:25 Perennial allergic rhinitis [id number] J30.89 [id number] [facility] GILBERTO, RMA Allergy 100 [facility] [address] 100 [place] [address] 05/02/2025 11:53:43 05/02/2025 11:58:04 Perennial allergic rhinitis [id number] J30.89 [id number] MAIRA TAYLOR A Allergy [address] [place] [address] 05/09/2025 11:05:10 05/09/2025 11:08:33 Perennial allergic rhinitis 408550426 J30.89 Health Concerns Section Related Observation LastModified by Organization Minnie wilks LastModified Time None Recorded Concern Status LastModified by Organization Details LastModified Time None Recorded Payers Encounter Date Sequence Insurance Name Policy Number Policy [id number] Covered Member ID العراقي Member ID Guarantor Name 05/09/2025 1 [facility] [id number] Monica Bonner [id number] Monica Bonner OBGyn Episode No OBEpisode recorded.
--- OUTSIDE RECORDS SUMMARY | 2025-05-30 03:26 | XMS_ITS | Continuity of Care Document ---
Author Organization [place] - [facility], Allergy Address [address] [place] [address] Care Team Providers Care Dials Supervisor Name Role Phone HAMILTON MARROQUIN Primary Care Provider HAMILTON MARROQUIN Referring Provider Assessment Encounter Date Assessment Date Assessment LastModified by Organization Details LastModified Time 05/02/2025 05/02/2025 Visit With: FORREST Velasquez Use of Antihistamine s: Yes If yes: Vial Test Change in medications: No If yes Increase in asthma symptoms If yes, inhaler use: Reaction to last injections: No If yes: Allergy Symptoms: Other: Missed: Dose Aware of Vial Test Aware: Notes: [email or web address] Not available 05/02/2025 11:57:14 Plan of Treatment Reminders Order Date Submit [...] : 4 12:20 PM (V67.00) Not Available [facility] 4 02:54:41 Hypertrop hy of nasal turbinate s 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 2013 Nasal turbinate hypertrop hy Not Available [facility] 4 01:11:18 Deviated nasal septum 278351346 Active 2013 Nasal septal deviation Septal deviation / Deflectio n; Note: Date Diagnosed : 4 11:43 AM (470) Note: Date Diagnosed : 4 11:43 AM (470) ; Start Date : 4 Not Available [facility]ly [facility] 4 01:11:19 Allergic rhinitis 62111050 Active 2023 ANNE CASTILLO PA-C [address], [facility] [place], [address] , [facility] - [facility] 4 13:36:24 Seasonal allergic rhinitis 315870073 Active 2023 ANNE CASTILLO PA-C [address], [facility] [place], [address] , [facility] - [facility] 4 13:36:24 Non-aller gic rhinitis [id number] 1 Active 2023 ANNE CASTILLO PA-C [address], [facility] [place], [address] , [facility] - [facility] 4 13:36:24 Perennial allergic rhinitis 021914570 Active 2023 VANESA MACIAS, [facility] [address] [facility], [facility] [place], [address] , [facility] - [facility] 5 11:27:54 Bacterial conjuncti vitis 905692179 Active 2024 TERRANCE MARRERO PA-C [address], [place], [address] , [facility] - [facility] 5 10:03:46 Problem Notes None recorded. Procedures Surgical History Date Name Laterality Status Provider Name and Address Organization Details Recorded Time 05/23/20 25 Allergy Immunotherapy Injections completed Kristen Alanis [address], [place], [address], [facility] - [facility] 05/23/2025 11:17:00 05/16/20 25 Allergy Immunotherapy Injections completed BACILIO MENDOZA RN [address], [place], [address], [place] [facility] 05/16/2025 13:47:58 05/09/20 25 Allergy Immunotherapy Injections completed FORREST JOY [address], [place], [address], [place] [facility] 05/09/2025 11:07:15 05/02/20 25 Allergy Immunotherapy Injections completed FORREST JOY [address], [place], [address], [place] [facility] 05/02/2025 11:57:44 04/20/20 25 Allergy Immunotherapy Injections completed VANESA EUBANKS RMA [address], [place], [address], [place] [facility] 04/20/2025 11:28:36 04/14/20 25 Allergy Immunotherapy Injections completed VANESA EUBANKS RMA [address], [address], [place] [facility] 04/14/2025 10:36:34 03/28/20 25 Allergy Immunotherapy Injections active Kristen Alanis [address], [address], [facility] - [facility] 03/28/2025 14:55:44 03/21/20 25 Allergy Immunotherapy Injections completed SHERRI JOYA [address], [address], [place] [facility] 03/21/2025 13:39:49 03/15/20 25 Allergy Immunotherapy Injections completed VANESA MACIASC, RMA [address], [place], [address], [place] [facility] 03/15/2025 14:07:06 02/23/20 25 Allergy Immunotherapy Injections completed VANESA MACIASC, RMA [address], [place], [address], [place] [facility] 02/22/2025 09:58:06 02/16/20 25 Allergy Immunotherapy Injections completed Kristen Zeke [address], [place], [address], [place] [facility] 02/15/2025 11:12:02 02/08/20 25 Allergy Immunotherapy Injections completed VANESA KORZEC, RMA [address], [place], [address], [place] [facility] 02/07/2025 11:15:16 02/01/20 25 Allergy Immunotherapy Injections completed VANESA KORZEC, RMA [address], [address], [place] [facility] 01/31/2025 13:40:41 01/26/20 25 Allergy Immunotherapy Injections completed AYSE JACINTO RMA [address], [address], [place] [facility] 01/25/2025 13:59:25 01/18/20 25 Allergy Immunotherapy Injections completed VANESA KORZEC, RMA [address] [facility] [place],[address] [place] [address], [address], [place] [facility] 01/17/2025 13:57:21 01/11/20 25 Allergy Immunotherapy Injections completed VANESA JOSSELINZEC, RMA [address] [place] [address], [address], [place] [facility] 01/10/2025 15:43:41 01/06/20 25 Allergy Immunotherapy Injections completed VANESA KORZEC, RMA [address] [facility] [address] [place],[address] [place] [address], [address], [place] [facility] 01/05/2025 11:20:03 12/28/19 25 Allergy Immunotherapy Injections completed VANESA KORZEC, RMA [address], [address], [place] [facility] 12/27/2024 11:13:35 12/22/19 25 Allergy Immunotherapy Injections completed AYSE JACINTO RMA [address], [address], [place] [facility] 12/21/2024 13:28:40 12/14/19 25 Allergy Immunotherapy Injections completed BACILIO MENDOZA RN [address], [place], [address], [place] [facility] 12/13/2024 14:28:43 12/08/19 25 Allergy Immunotherapy Injections completed VANESA EUBANKS, RMA [address], [place], [address], [place] [facility] 12/07/2024 11:05:33 11/30/19 25 Allergy Immunotherapy Injections completed BACILIO MENDOZA RN [address], [place], [address], [place] [facility] 11/29/2024 15:05:15 11/23/19 25 Allergy Immunotherapy Injections completed VANESA EUBANKS, RMA [address], [place], [address], [place] [facility] 11/22/2024 14:23:10 11/16/19 25 Allergy Immunotherapy Injections completed VANESA EUBANKS, RMA [address], [address], [facility] - [facility] 11/15/2024 16:32:53 11/09/19 25 Allergy Immunotherapy Injections completed VANESA EUBANKS RMA [address], [address], [facility] - [facility] 11/08/2024 14:19:47 11/02/19 25 Allergy Immunotherapy Injections completed FORREST JOY [address], [place], [address], [facility] - [facility] 11/01/2024 14:29:07 10/26/19 25 Allergy Immunotherapy Injections completed VANESA EUBANKS RMA [address], [address], [place] [facility] 10/25/2024 14:49:37 10/19/19 25 Allergy Immunotherapy Injections completed FORREST JOY [address], [place], [address], [place] [facility] 10/18/2024 16:37:39 10/12/19 25 Allergy Immunotherapy Injections completed BACILIO MENDOZA RN [address], [address], [place] [facility] 10/11/2024 10:42:29 10/06/19 25 Allergy Immunotherapy Injections completed FORREST JOY [address], [address], [place] [facility] 10/05/2024 13:53:31 09/28/19 25 Allergy Immunotherapy Injections completed FORREST JOY [address], [address], [place] [facility] 09/27/2024 15:32:03 09/22/19 25 Allergy Immunotherapy Injections completed FORREST JOY [address] [place] [address], [address], [place] [facility] 09/21/2024 11:02:30 09/15/19 25 Allergy Immunotherapy Injections completed VANESA EUBANKS RMCecily [address] [place] [address], [address], [place] [facility] 09/14/2024 10:17:23 09/06/19 25 Allergy Immunotherapy Injections completed FORREST JOY [address] [place] [address], [address], [place] [facility] 09/06/2024 13:16:45 08/30/19 25 Allergy Immunotherapy Injections completed BACILIO MENDOZA RN [address] [place] [address], [address], [place] [facility] 08/30/2024 13:52:24 08/23/19 25 Allergy Immunotherapy Injections completed VANESA EUBANKS RMA [address] [place] [address], [address], [place] [facility] 08/23/2024 14:55:08 08/09/19 25 Allergy Immunotherapy Injections completed BACILIO MENDOZA RN [address], [address], [place] [facility] 08/09/2024 15:22:41 08/02/19 25 Allergy Immunotherapy Injections completed VANESA EUBANKS, RMA [address], [place], [address], [place] [facility] 08/02/2024 15:04:00 07/19/19 25 Allergy Immunotherapy Injections completed VANESA EUBANKS, RMA [address], [place], [address], [place] [facility] 07/19/2024 15:23:58 07/12/20 24 Allergy Immunotherapy Injections completed BACILIO MENDOZA RN [address], [place], [address], [place] [facility] 07/12/2024 13:45:49 06/28/20 24 Allergy Immunotherapy Injections completed FORREST JOY [address], [place], [address], [place] [facility] 06/28/2024 15:47:41 06/21/20 24 Allergy Immunotherapy Injections completed VANESA EUBANKS, RMA [address], [place], [address], [place] [facility] 06/21/2024 15:48:40 06/14/20 24 Allergy Immunotherapy Injections completed BACILIO MENDOZA RN [address], [address], [place] [facility] 06/14/2024 16:08:49 06/07/20 24 Allergy Immunotherapy Injections completed FORREST JOY [address], [address], [place] [facility] 06/07/2024 14:26:02 05/31/20 24 Allergy Immunotherapy Injections completed VANESA EUBANKS RMA [address], [address], [place] [facility] 05/31/2024 11:54:08 05/19/20 24 Allergy Immunotherapy Injections completed FORREST JOY [address], [place], [address], [place] [facility] 05/19/2024 16:27:30 05/13/20 24 Allergy Immunotherapy Injections completed VANESA EUBANKS, RMA [address], [place], [address], [place] [facility] 05/13/2024 15:25:52 05/04/20 24 Allergy Immunotherapy Injections completed BACILIO MENDOZA RN [address], [place], [address], [place] [facility] 05/04/2024 14:55:11 04/27/20 24 Allergy Immunotherapy Injections completed AYSE JACINTO RMA [address], [place], [address], [place] [facility] 04/27/2024 11:50:31 04/15/20 24 Allergy Immunotherapy Injections completed AYSE JACINTO RMA [address], [place], [address], [place] [facility] 04/15/2024 13:28:07 04/07/20 24 Allergy Immunotherapy Injections completed VANESA EUBANKS, RMA [address], [place], [address], [place] [facility] 04/07/2024 15:08:26 03/16/20 24 Allergy Immunotherapy Injections completed VANESA EUBANKS, RMA [address], [place], [address], [place] [facility] 03/16/2024 15:48:00 03/09/20 24 Allergy Immunotherapy Injections completed VANESA EUBANKS RMA [address], [place], [address], [place] [facility] 03/09/2024 16:03:35 03/01/20 24 Allergy Immunotherapy Injections completed AYSE JACINTO RMA [address], [address], [place] [facility] 03/01/2024 14:19:16 02/23/20 24 Allergy Immunotherapy Injections completed VANESA EUBANKS, RMA [address], [place], [address], [place] [facility] 02/23/2024 14:52:37 02/16/20 24 Allergy Immunotherapy Injections completed VANESA EUBANKS, RMA [address], [place], [address], [place] [facility] 02/16/2024 16:09:42 02/09/20 24 Allergy Immunotherapy Injections completed BACILIO MENDOZA RN [address], [place], [address], [place] [facility] 02/09/2024 15:05:18 02/02/20 24 Allergy Immunotherapy Injections completed BACILIO MENDOZA RN [address], [place], [address], [place] [facility] 02/02/2024 11:23:37 01/26/20 24 Allergy Immunotherapy Injections completed AYSE JACINTO [facility] [address], [place], [address], [place] [facility] 01/26/2024 14:21:13 01/12/20 24 Allergy Immunotherapy Injections completed FORREST JOY [address] [place] [address], [address], [place] [facility] 01/12/2024 10:31:59 01/04/20 24 Allergy Immunotherapy Injections completed FORREST JOY [address] [place] [address], [address], [place] [facility] 01/04/2024 08:57:22 06/10/20 21 hysterectomy completed Monica Bonner [place] [facility] 12/15/2023 11:32:03 05/13/20 08 appendectomy completed Monica Bonner [place] [facility] 12/15/2023 11:34:07 07/13/18 90 tonsillectomy completed Monica Bonner [place] [facility] 12/15/2023 11:33:40 Imaging Results None recorded. Procedure [...] mg tablet 12/14 completed Medicati on ID: [id number] Du ration Value: 21 Brand Name: ibuprofe n Send Method: E-Prescr ibed Sub s Allowed: subs LIZBETH Colemani al Instruct ion: TAKE 1 TABLET BY MOUTH 3 TIMES A DAY Medi cationGe nericNam e: ibuprofe n Medica tion ID: [id number] Du ration Value: 21 Brand Name: ibuprofe [...] mg tablet 12/14 completed Medicati on ID: [id number] Du ration Value: 5 Brand Name: hydrocod one-acet aminophe n Send Method: E-Prescr ibed Sub s Allowed: subs LIZBETH Colemani al Instruct ion: TAKE 1 TABLET BY MOUTH EVERY 4 HOURS NEEDED FOR PAIN Med icationG enericNa me: hydrocod one-acet aminophe n Medica tion ID: [id number] Du ration Value: 5 Brand Name: hydrocod one-acet aminophe n Send Method: E-Prescr ibed Sub s Allowed: subs LIZBETH Clancy al Instruct ion: TAKE 1 TABLET BY [...] mg tablet 12/14 completed Medicati on ID: [id number] Du ration Value: 30 Brand Name: surendraazepa m Send Method: E-Prescr ibed Sub s Allowed: subs OK Speci al Instruct ion: TAKE 1 TABLET BY MOUTH AT BEDTIME Medicati onGeneri cName: lorazepa m Medica tion ID: [id number] Du ration Value: 30 Brand Name: lorazepa [...] dose pack 12/14 completed Medicati on ID: [id number] Du ration Value: 6 Brand Name: methylpr ednisolo ne Send Method: E-Prescr ibed Sub s Allowed: subs OK Speci al Instruct ion: TAKE DIRECTED ON PATIENT INSTRUCT ION CARD. Me dication GenericN chuck: methylpr ednisolo ne Medic ation ID: [id number] Du ration Value: 6 Brand Name: methylpr ednisolo ne Send Method: E-Prescr ibed Sub s Allowed: subs [place] Speci al Instruct ion: TAKE DIRECTED ON PATIENT INSTRUCT ION CARD. Me dication GenericN chuck: methylpr ednisolo ne Not Available Not Available Not Available Percocet 5 mg-325 mg tablet 1-2 tablet by mouth 12/14 completed Medicati on ID: [id number] Pr escribed By Name: Bret Yip MD Brand Name: Percocet Send Method: E-Prescr ibed Sub s Allowed: subs OK Medic ationGen ericName : Percocet Medicat ion ID: [id number] Pr escribed By Name: Bret Yip MD [...] suspensio n 12/14 completed Medicati on ID: [id number] Du ration Value: 90 Brand Name: medroxyp rogester one Send Method: E-Prescr ibed Sub s Allowed: subs [place] Speci al Instruct ion: INJECT 1 ML INTRAMUS CULARLY ONCE Med icationG enericNa me: medroxyp rogester one Medi cation ID: [id number] Du ration Value: 90 Brand Name: medroxyp [...] ICD10 Code Diagnosis IMO Codes Diagnosis Note [id number] VANESA EUBANKS RMA Allergy [address] [facility] [address] [place] [address] 04/14/2025 10:23:52 04/14/2025 10:37:24 Perennial allergic rhinitis [id number] J30.89 [id number] VANESA EUBANKS RMA Allergy [address] [facility] [address] [place] [address] 04/20/2025 11:27:23 04/20/2025 11:29:25 Perennial allergic rhinitis [id number] J30.89 [id number] VANESA MACIAS, RMA Allergy 100 [facility] [address] [place] [address] 05/02/2025 11:53:43 05/02/2025 11:58:04 Perennial allergic rhinitis [id number] J30.89 Health Concerns Section Related Observation LastModified by Organization Detai ls LastModified Time None Recorded Concern Status LastModified by Organization Details LastModified Time None Recorded Payers Encounter Date Sequence Insurance Name Policy Number Policy [id number] Covered Member ID [id number] Member ID Guarantor Name 05/02/2025 1 [facility] ([facility] [place], [place]) [id number] Monica Bonner [id number] Monica Bonner OBGyn Episode No OBEpisode recorded.
--- OUTSIDE RECORDS SUMMARY | 2025-05-30 03:26 | XMS_ITS | Continuity of Care Document ---
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 Name Role Phone HAMILTON MARROQUIN Primary Care Provider HAMILTON MARROQUIN Referring Provider [phone] Assessment Encounter Date Assessment Date Assessment LastModified by Organization Details LastModified Time 05/23/2025 05/23/2025 Visit With: FORREST Velasquez Use of Antihistamine s: No If yes: Vial Test Change in medications: No If yes Increase in asthma symptoms No Asthma Hx If yes, inhaler use: Reaction to last injections: No If yes: Allergy Symptoms: Other: Missed: Dose Aware of Vial Test Aware: Notes: [email or web address] Not available 05/23/2025 11:17:11 Plan of Treatment Reminders Order Date Submit [...] : 4 12:20 PM (V67.00) Not Available [facility] 4 02:54:41 Hypertrop hy of nasal turbinate s 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 Active 2013 Nasal turbinate hypertrop hy Not Available [facility] 4 01:11:18 Deviated nasal septum 753079277 Active 2013 Nasal septal deviation Septal deviation / Deflectio n; Note: Date Diagnosed : 4 11:43 AM (470) Note: Date Diagnosed : 4 11:43 AM (470) ; Start Date : 4 Not Available [facility] 4 01:11:19 Allergic rhinitis 03752728 Active 2023 ANNE CASTILLO PA-C [address], [place], [address] , [facility] 4 13:36:24 Seasonal allergic rhinitis 860116753 Active 2023 ANNE CASTILLO PA-C [address], [place], [address] , [facility] - [facility] 4 13:36:24 Non-aller gic rhinitis [id number] 1 Active 2023 ANNE CASTILLO PA-C [address], [facility] [place], [address] , [facility] - [facility] 4 13:36:24 Perennial allergic rhinitis 667457742 Active 2023 VANESA MACIAS, [facility] [address], [place], [address] , [facility] - [facility] 5 11:27:54 Bacterial conjuncti vitis 338535801 Active 2024 TERRANCE MARRERO PA-C [address], [facility] [place], [address] , [facility] - [facility] 5 10:03:46 Problem Notes None recorded. Procedures Surgical History Date Name Laterality Status Provider Name and Address Organization Details Recorded Time 05/23/20 25 Allergy Immunotherapy Injections completed Kristen Alanis [address], [place], [address], [facility] - [facility] 05/23/2025 11:17:00 05/16/20 25 Allergy Immunotherapy Injections completed BACILIO MENDOZA RN [address], [place], [address], [place] [facility] 05/16/2025 13:47:58 05/09/20 25 Allergy Immunotherapy Injections completed FORREST JOY [address], [place], [address], [place] [facility] 05/09/2025 11:07:15 05/02/20 25 Allergy Immunotherapy Injections completed FORREST JOY [address], [place], [address], [place] [facility] 05/02/2025 11:57:44 04/20/20 25 Allergy Immunotherapy Injections completed VANESA EUBANKS RMA [address], [place], [address], [place] [facility] 04/20/2025 11:28:36 04/14/20 25 Allergy Immunotherapy Injections completed VANESA EUBANKS RMA [address] [place] [address], [address], [place] [facility] 04/14/2025 10:36:34 03/28/20 25 Allergy Immunotherapy Injections active Kristen Alanis [address] [place] [address], [address], [facility] - [facility] 03/28/2025 14:55:44 03/21/20 25 Allergy Immunotherapy Injections completed FORREST JOY [address] [place] [place] [address], [address], [place] [facility] 03/21/2025 13:39:49 03/15/20 25 Allergy Immunotherapy Injections completed VANESA EUBANKS RMA [address], [place], [address], [place] [facility] 03/15/2025 14:07:06 02/23/20 25 Allergy Immunotherapy Injections completed VANESA EUBANKS RMA [address], [place], [address], [place] [facility] 02/22/2025 09:58:06 02/16/20 25 Allergy Immunotherapy Injections completed Kristenangel luis Alanis [address], [place], [address], [facility] - [facility] 02/15/2025 11:12:02 02/08/20 25 Allergy Immunotherapy Injections completed VANESA KORZEC, RMA [address], [place], [address], [facility] - [facility] 02/07/2025 11:15:16 02/01/20 25 Allergy Immunotherapy Injections completed VANESA KORZEC, RMA [address], [place], [address], [place] [facility] 01/31/2025 13:40:41 01/26/20 25 Allergy Immunotherapy Injections completed AYSE JACINTO RMA [address], [place], [address], [facility] - [facility] 01/25/2025 13:59:25 01/18/20 25 Allergy Immunotherapy Injections completed VANESA KORZEC, RMA [address], [place], [address], [facility] - [facility] 01/17/2025 13:57:21 01/11/20 25 Allergy Immunotherapy Injections completed VANESA KORZEC, RMA [address], [place], [address], [facility] - [facility] 01/10/2025 15:43:41 01/06/20 25 Allergy Immunotherapy Injections completed VANESA KORZEC, RMA [address] [place] [address], [address], [facility] - [facility] 01/05/2025 11:20:03 12/28/19 25 Allergy Immunotherapy Injections completed VANESA KORZEC, RMA [address], [place], [address], [place] [facility] 12/27/2024 11:13:35 12/22/19 25 Allergy Immunotherapy Injections completed AYSE JACINTO RMA [address], [place], [address], [place] [facility] 12/21/2024 13:28:40 12/14/19 25 Allergy Immunotherapy Injections completed BACILIO MENDOZA RN [address], [place], [address], [place] [facility] 12/13/2024 14:28:43 12/08/19 25 Allergy Immunotherapy Injections completed VANESA EUBANKS, RMA [address], [place], [address], [place] [facility] 12/07/2024 11:05:33 11/30/19 25 Allergy Immunotherapy Injections completed BACILIO MENDOZA RN [address], [place], [address], [place] [facility] 11/29/2024 15:05:15 11/23/19 25 Allergy Immunotherapy Injections completed VANESA EUBANKS RMA [address], [place], [address], [place] [facility] 11/22/2024 14:23:10 11/16/19 25 Allergy Immunotherapy Injections completed VANESA EUBANKS RMA [address], [place], [address], [place] [facility] 11/15/2024 16:32:53 11/09/19 25 Allergy Immunotherapy Injections completed VANESA EUBANKS RMA [address], [place], [address], [place] [facility] 11/08/2024 14:19:47 11/02/19 25 Allergy Immunotherapy Injections completed FORREST JOY [address], [place], [address], [place] [facility] 11/01/2024 14:29:07 10/26/19 25 Allergy Immunotherapy Injections completed VANESA EUBANKS RMA [address], [place], [address], [place] [facility] 10/25/2024 14:49:37 10/19/19 25 Allergy Immunotherapy Injections completed FORREST JOY [address], [place], [address], [place] [facility] 10/18/2024 16:37:39 10/12/19 25 Allergy Immunotherapy Injections completed BACILIO MENDOZA RN [address], [place], [address], [place] [facility] 10/11/2024 10:42:29 10/06/19 25 Allergy Immunotherapy Injections completed FORREST JOY [address], [place], [address], [place] [facility] 10/05/2024 13:53:31 09/28/19 25 Allergy Immunotherapy Injections completed FORREST JOY [address], [place], [address], [place] [facility] 09/27/2024 15:32:03 09/22/19 25 Allergy Immunotherapy Injections completed FORREST JOY [address], [place], [address], [place] [facility] 09/21/2024 11:02:30 09/15/19 25 Allergy Immunotherapy Injections completed VANESA EUBANKS RMCecily [address] [place] [address], [address], [place] [facility] 09/14/2024 10:17:23 09/06/19 25 Allergy Immunotherapy Injections completed FORREST JOY [address], [place], [address], [place] [facility] 09/06/2024 13:16:45 08/30/19 25 Allergy Immunotherapy Injections completed BACILIO MENDOZA RN [address] [place] [address], [address], [place] [facility] 08/30/2024 13:52:24 08/23/19 25 Allergy Immunotherapy Injections completed VANESA EUBANKS RMCecily [address], [place], [address], [place] [facility] 08/23/2024 14:55:08 08/09/19 25 Allergy Immunotherapy Injections completed BACILIO MENDOZA RN [address], [place], [address], [place] [facility] 08/09/2024 15:22:41 08/02/19 25 Allergy Immunotherapy Injections completed VANESA EUBANKS, RMA [address], [place], [address], [place] [facility] 08/02/2024 15:04:00 07/19/19 25 Allergy Immunotherapy Injections completed VANESA EUBANKS, RMA [address], [place], [address], [place] [facility] 07/19/2024 15:23:58 07/12/20 24 Allergy Immunotherapy Injections completed BACILIO MENDOZA RN [address], [place], [address], [place] [facility] 07/12/2024 13:45:49 06/28/20 24 Allergy Immunotherapy Injections completed FORREST JOY [address], [place], [address], [place] [facility] 06/28/2024 15:47:41 06/21/20 24 Allergy Immunotherapy Injections completed VANESA EUBANKS, RMA [address], [place], [address], [place] [facility] 06/21/2024 15:48:40 06/14/20 24 Allergy Immunotherapy Injections completed BACILIO MENDOZA RN [address], [place], [address], [place] [facility] 06/14/2024 16:08:49 06/07/20 24 Allergy Immunotherapy Injections completed FORREST JOY [address], [place], [address], [place] [facility] 06/07/2024 14:26:02 05/31/20 24 Allergy Immunotherapy Injections completed VANESA EUBANKS RMA [address], [place], [address], [place] [facility] 05/31/2024 11:54:08 05/19/20 24 Allergy Immunotherapy Injections completed FORREST JOY [address], [place], [address], [place] [facility] 05/19/2024 16:27:30 05/13/20 24 Allergy Immunotherapy Injections completed VANESA EUBANKS, RMA [address], [place], [address], [place] [facility] 05/13/2024 15:25:52 05/04/20 24 Allergy Immunotherapy Injections completed BACILIO MENDOZA RN [address], [place], [address], [place] [facility] 05/04/2024 14:55:11 04/27/20 24 Allergy Immunotherapy Injections completed AYSE JACINTO RMA [address], [place], [address], [place] [facility] 04/27/2024 11:50:31 04/15/20 24 Allergy Immunotherapy Injections completed AYSE JACINTO RMA [address], [place], [address], [place] [facility] 04/15/2024 13:28:07 04/07/20 24 Allergy Immunotherapy Injections completed VANESA EUBANKS, RMA [address], [place], [address], [place] [facility] 04/07/2024 15:08:26 03/16/20 24 Allergy Immunotherapy Injections completed VANESA MACIASC, RMA [address], [place], [address], [place] [facility] 03/16/2024 15:48:00 03/09/20 24 Allergy Immunotherapy Injections completed VANESA MACIASC RMA [address], [place], [address], [place] [facility] 03/09/2024 16:03:35 03/01/20 24 Allergy Immunotherapy Injections completed AYSE JACINTO RMA [address], [place], [address], [place] [facility] 03/01/2024 14:19:16 02/23/20 24 Allergy Immunotherapy Injections completed VANESA MACIASC, RMA [address], [place], [address], [place] [facility] 02/23/2024 14:52:37 02/16/20 24 Allergy Immunotherapy Injections completed VANESA EUBANKS, RMA [address], [place], [address], [place] [facility] 02/16/2024 16:09:42 02/09/20 24 Allergy Immunotherapy Injections completed BACILIO MENDOZA RN [address], [place], [address], [place] [facility] 02/09/2024 15:05:18 02/02/20 24 Allergy Immunotherapy Injections completed BACILIO MENDOZA RN [address], [place], [address], [place] [facility] 02/02/2024 11:23:37 01/26/20 24 Allergy Immunotherapy Injections completed [facility] [address], [place], [address], [place] [facility] 01/26/2024 14:21:13 01/12/20 24 Allergy Immunotherapy Injections completed FORREST JOY [address], [place], [address], [place] [facility] 01/12/2024 10:31:59 01/04/20 24 Allergy Immunotherapy Injections completed FORREST JOY [address], [place], [address], [place] [facility] 01/04/2024 08:57:22 06/10/20 21 hysterectomy completed Monica Bonner [place] [facility] 12/15/2023 11:32:03 05/13/20 08 appendectomy completed Monica Bonner [place] [facility] 12/15/2023 11:34:07 07/13/18 90 tonsillectomy completed Monica Bonner [place] [facility] 12/15/2023 11:33:40 Imaging Results None recorded. Procedure [...] mg tablet 12/14 completed Medicati on ID: [id number] Du ration Value: 21 Brand Name: ibuprofe n Send Method: E-Prescr ibed Sub s Allowed: subs OK Speci al Instruct ion: TAKE 1 TABLET BY MOUTH 3 TIMES A DAY Medi cationGe nericNam e: ibuprofe n Medica tion ID: [id number] Du ration Value: 21 Brand Name: ibuprofe [...] mg tablet 12/14 completed Medicati on ID: [id number] Du ration Value: 5 Brand Name: hydrocod one-acet aminophe n Send Method: E-Prescr ibed Sub s Allowed: subs OK Speci al Instruct ion: TAKE 1 TABLET BY MOUTH EVERY 4 HOURS NEEDED FOR PAIN Med icationG enericNa me: hydrocod one-acet aminophe n Medica tion ID: [id number] Du ration Value: 5 Brand Name: hydrocod [...] mg tablet 12/14 completed Medicati on ID: [id number] Du ration Value: 30 Brand Name: zaya juan Send Method: E-Prescr ibed Sub s Allowed: subs OK Speci al Instruct ion: TAKE 1 TABLET BY MOUTH AT BEDTIME Medicati onGeneri cName: lorazepa m Medica tion ID: [id number] Du ration Value: 30 Brand Name: lorazepa [...] dose pack 12/14 completed Medicati on ID: [id number] Du ration Value: 6 Brand Name: methylpr ednisolo ne Send Method: E-Prescr ibed Sub s Allowed: subs OK Speci al Instruct ion: TAKE DIRECTED ON PATIENT INSTRUCT ION CARD. Me dication GenericN chuck: methylpr ednisolo ne Medic ation ID: [id number] Du ration Value: 6 Brand Name: methylpr ednisolo ne Send Method: E-Prescr ibed Sub s Allowed: subs OK Speci al Instruct ion: TAKE DIRECTED ON PATIENT INSTRUCT ION CARD. Me dication GenericN chuck: methylpr ednisolo ne Not Available Not Available Not Available Percocet 5 mg-325 mg tablet 1-2 tablet by mouth 12/14 completed Medicati on ID: [id number] Pr escribed By Name: Bret Yip MD Brand Name: Percocet Send Method: E-Prescr ibed Sub s Allowed: subs OK Medic ationGen ericName : Percocet Medicat ion ID: [id number] Pr escribed By Name: Bret Yip MD [...] suspensio n 12/14 completed Medicati on ID: [id number] Du ration Value: 90 Brand Name: medroxyp rogester one Send Method: E-Prescr ibed Sub s Allowed: subs OK Speci al Instruct ion: INJECT 1 ML INTRAMUS CULARLY ONCE Med icationG enericNa me: medroxyp rogester one Medi cation ID: [id number] Du ration Value: 90 Brand Name: medroxyp [...] ICD10 Code Diagnosis IMO Codes Diagnosis Note [id number] [facility] [address] [place] [address] 05/02/2025 11:53:43 05/02/2025 11:58:04 Perennial allergic rhinitis [id number] J30.89 [id number] [facility] All[facility] [address] [place] [address] [address] [place] [address] 05/09/2025 11:05:10 05/09/2025 11:08:33 Perennial allergic rhinitis [id number] J30.89 25417 AYSE JACINTO A Allergy [address] [place] [address] [address] [place] [address] 05/16/2025 13:47:01 05/16/2025 13:48:37 Perennial allergic rhinitis [id number] J30.89 28227 [facility] [address] [place] [address] 100 [facility] [address] 05/23/2025 11:15:37 05/23/2025 11:17:30 Perennial allergic rhinitis [id number] J30.89 Health Concerns Section Related Observation LastModified by Organization Detai ls LastModified Time None Recorded Concern Status LastModified by Organization Details LastModified Time None Recorded Payers Encounter Date Sequence Insurance Name Policy Number Policy العراقي Covered Member ID [id number] Member ID Guarantor Name 05/23/2025 1 [facility] [place] [id number] Monica Bonner [id number] Monica Bonner OBGyn Episode No OBEpisode recorded.
--- OUTSIDE RECORDS SUMMARY | 2025-05-30 03:26 | XMS_ITS | Continuity of Care Document ---
Author Organization [facility], [facility] Address [address] [place] [address] Care Team Providers Care Music Therapy Specialist Name Role Phone HAMILTON MARROQUIN Primary Care Provider HAMILTON MARROQUIN Referring Provider Assessment No assessment recorded. 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 - [facility] 4 13:36:24 Seasonal allergic rhinitis 948963413 Active 2023 ANNE CASTILLO PA-C [address], [place], [address] , [facility] - [facility] [place] 4 13:36:24 Non-aller gic rhinitis [id number] 1 Active 2023 ANNE CASTILLO PA-C [address], [place], [address] , [place] [facility] 4 13:36:24 Perennial allergic rhinitis 875066453 Active 2023 VANESA MACIAS, [facility] [address], [place], [address] , [place] [facility] 5 11:27:54 Bacterial conjuncti vitis 618801075 Active 2024 TERRANCE MARRERO PA-C [address], [place], [address] , [facility] - [facility] 5 10:03:46 Problem Notes None recorded. Procedures Surgical History Date Name Laterality Status Provider Name and Address Organization Details Recorded Time 05/23/20 25 Allergy Immunotherapy Injections completed [facility]en [facility]is [address] [facility] [place] [address], [place], [address], [facility] - [facility] 05/23/2025 11:17:00 05/16/20 25 Allergy Immunotherapy Injections completed BACILIO MENDOZA RN [address] [facility], [place], [address], [facility] - [facility] 05/16/2025 13:47:58 05/09/20 25 Allergy Immunotherapy Injections completed FORREST JOY [address] [facility], [place], [address], [facility] - [facility] 05/09/2025 11:07:15 05/02/20 25 Allergy Immunotherapy Injections completed AYSE JACINTO RMA [address], [place], [address], [place] [facility] 05/02/2025 11:57:44 04/20/20 25 Allergy Immunotherapy Injections completed VANESA MACIASC, RMA [address], [place], [address], [place] [facility] 04/20/2025 11:28:36 04/14/20 25 Allergy Immunotherapy Injections completed VANESA MACIASC, RMA [address], [place], [address], [place] [facility] 04/14/2025 10:36:34 03/28/20 25 Allergy Immunotherapy Injections active Kristen Alanis [address], [place], [address], [place] [facility] 03/28/2025 14:55:44 03/21/20 25 Allergy Immunotherapy Injections completed AYSE JACINTO RMA [address], [place], [address], [place] [facility] 03/21/2025 13:39:49 03/15/20 25 Allergy Immunotherapy Injections completed VANESA EUBANKS, RMA [address], [place], [address], [place] [facility] 03/15/2025 14:07:06 02/23/20 25 Allergy Immunotherapy Injections completed VANESA EUBANKS, RMA [address], [place], [address], [facility] - [facility] 02/22/2025 09:58:06 02/16/20 25 Allergy Immunotherapy Injections completed Kristen Zeke [address], [place], [address], [place] [facility] 02/15/2025 11:12:02 02/08/20 25 Allergy Immunotherapy Injections completed VANESA MACIASC, RMA [address], [place], [address], [place] [facility] 02/07/2025 11:15:16 02/01/20 25 Allergy Immunotherapy Injections completed AVNESA JOSSELINZEC, RMA [address], [place], [address], [place] [facility] 01/31/2025 13:40:41 01/26/20 25 Allergy Immunotherapy Injections completed AYSE JACINTO, RMA [address], [place], [address], [place] [facility] 01/25/2025 13:59:25 01/18/20 25 Allergy Immunotherapy Injections completed VANESA JOSSELINZEC, RMA [address], [place], [address], [place] [facility] 01/17/2025 13:57:21 01/11/20 25 Allergy Immunotherapy Injections completed VANESA SCHWABZEC, RMA [address], [place], [address], [place] [facility] 01/10/2025 15:43:41 01/06/20 25 Allergy Immunotherapy Injections completed VANESA MACIASC, RMA [address], [place], [address], [place] [facility] 01/05/2025 11:20:03 12/28/19 25 Allergy Immunotherapy Injections completed VANESA MACIASC, RMA [address], [place], [address], [place] [facility] 12/27/2024 11:13:35 12/22/19 25 Allergy Immunotherapy Injections completed AYSE JACINTO RMA [address], [place], [address], [facility] - [facility] 12/21/2024 13:28:40 12/14/19 25 Allergy Immunotherapy Injections completed BACILIO MENDOZA RN [address], [place], [address], [place] [facility] 12/13/2024 14:28:43 12/08/19 25 Allergy Immunotherapy Injections completed VANESA JOSSELINZEC, RMA [address], [place], [address], [place] [facility] 12/07/2024 11:05:33 11/30/19 25 Allergy Immunotherapy Injections completed BACILIO MENDOZA RN [address], [place], [address], [place] [facility] 11/29/2024 15:05:15 11/23/19 25 Allergy Immunotherapy Injections completed VANESA EUBANKS, RMA [address], [place], [address], [place] [facility] 11/22/2024 14:23:10 11/16/19 25 Allergy Immunotherapy Injections completed VANESA EUBANKS, RMA [address], [place], [address], [place] [facility] 11/15/2024 16:32:53 11/09/19 25 Allergy Immunotherapy Injections completed VANESA EUBANKS, RMA [address], [place], [address], [place] [facility] 11/08/2024 14:19:47 11/02/19 25 Allergy Immunotherapy Injections completed FORREST JOY [address], [place], [address], [place] [facility] 11/01/2024 14:29:07 10/26/19 25 Allergy Immunotherapy Injections completed VANESA EUBANKS RMA [address], [place], [address], [place] [facility] 10/25/2024 14:49:37 10/19/19 25 Allergy Immunotherapy Injections completed FORREST JOY [address], [place], [address], [place] [facility] 10/18/2024 16:37:39 10/12/19 25 Allergy Immunotherapy Injections completed BACILIO MENDOZA RN [address], [place], [address], [place] [facility] 10/11/2024 10:42:29 10/06/19 25 Allergy Immunotherapy Injections completed FORREST JOY [address], [place], [address], [place] [facility] 10/05/2024 13:53:31 09/28/19 25 Allergy Immunotherapy Injections completed AYSE JACINTO RMA [address], [place], [address], [place] [facility] 09/27/2024 15:32:03 09/22/19 25 Allergy Immunotherapy Injections completed AYSE JACINTO RMA [address], [place], [address], [place] [facility] 09/21/2024 11:02:30 09/15/19 25 Allergy Immunotherapy Injections completed VANESA EUBANKS, RMA [address], [place], [address], [place] [facility] 09/14/2024 10:17:23 09/06/19 25 Allergy Immunotherapy Injections completed AYSE JACINTO RMA [address], [place], [address], [place] [facility] 09/06/2024 13:16:45 08/30/19 25 Allergy Immunotherapy Injections completed BACILIO MENDOZA RN [address], [place], [address], [place] [facility] 08/30/2024 13:52:24 08/23/19 25 Allergy Immunotherapy Injections completed VANESA EUBANKS RMA [address], [place], [address], [place] [facility] 08/23/2024 14:55:08 08/09/19 25 Allergy Immunotherapy Injections completed BACILIO MENDOZA RN [address], [place], [address], [place] [facility] 08/09/2024 15:22:41 08/02/19 25 Allergy Immunotherapy Injections completed VANESA EUBANKS RMA [address], [place], [address], [place] [facility] 08/02/2024 15:04:00 07/19/19 25 Allergy Immunotherapy Injections completed VANESA EUBANKS, RMA [address], [place], [address], [place] [facility] 07/19/2024 15:23:58 07/12/20 24 Allergy Immunotherapy Injections completed BACILIO MENDOZA RN [address], [place], [address], [place] [facility] 07/12/2024 13:45:49 06/28/20 24 Allergy Immunotherapy Injections completed FORREST JOY [address], [place], [address], [place] [facility] 06/28/2024 15:47:41 06/21/20 24 Allergy Immunotherapy Injections completed VANESA EUBANKS RMA [address], [place], [address], [place] [facility] 06/21/2024 15:48:40 06/14/20 24 Allergy Immunotherapy Injections completed BACILIO MENDOZA RN [address] [place] [address], [address], [place] [facility] 06/14/2024 16:08:49 06/07/20 24 Allergy Immunotherapy Injections completed FORREST JOY [address] [place] [address], [address], [place] [facility] 06/07/2024 14:26:02 05/31/20 24 Allergy Immunotherapy Injections completed VANESA EUBANKS RMA [address], [place], [address], [place] [facility] 05/31/2024 11:54:08 05/19/20 24 Allergy Immunotherapy Injections completed FORREST JOY [address], [place], [address], [place] [facility] 05/19/2024 16:27:30 05/13/20 24 Allergy Immunotherapy Injections completed AVNESA EUBANKS RMA [address], [place], [address], [place] [facility] 05/13/2024 15:25:52 05/04/20 24 Allergy Immunotherapy Injections completed BACILIO MENDOZA RN [address], [place], [address], [place] [facility] 05/04/2024 14:55:11 04/27/20 24 Allergy Immunotherapy Injections completed AYSE JACINTO RMA [address], [place], [address], [place] [facility] 04/27/2024 11:50:31 04/15/20 24 Allergy Immunotherapy Injections completed AYSE JACINTO RMA [address], [place], [address], [place] [facility] 04/15/2024 13:28:07 04/07/20 24 Allergy Immunotherapy Injections completed VANESA MACIASC, RMA [address], [place], [address], [place] [facility] 04/07/2024 15:08:26 03/16/20 24 Allergy Immunotherapy Injections completed VANESA MACIASC, RMA [address], [place], [address], [place] [facility] 03/16/2024 15:48:00 03/09/20 24 Allergy Immunotherapy Injections completed VANESA MACIASC, RMA [address], [place], [address], [place] [facility] 03/09/2024 16:03:35 03/01/20 24 Allergy Immunotherapy Injections completed AYSE JACINTO RMA [address], [place], [address], [place] [facility] 03/01/2024 14:19:16 02/23/20 24 Allergy Immunotherapy Injections completed VANESA MACIASC, RMA [address], [place], [address], [place] [facility] 02/23/2024 14:52:37 02/16/20 24 Allergy Immunotherapy Injections completed VANESA GILBERTOC, RMA [address], [place], [address], [place] [facility] 02/16/2024 16:09:42 02/09/20 24 Allergy Immunotherapy Injections completed BACILIO MENDOZA RN [address], [place], [address], [place] [facility] 02/09/2024 15:05:18 02/02/20 24 Allergy Immunotherapy Injections completed BACILIO MENDOZA RN 100 [facility],[address], [address], [facility] - [facility] 02/02/2024 11:23:37 01/26/20 24 Allergy Immunotherapy Injections completed AYSE JACINTO [facility] 100 [facility],[address], [address], [facility] - [facility] 01/26/2024 14:21:13 01/12/20 24 Allergy Immunotherapy Injections completed AYSE JACINTO [facility] 100 [facility],[address], [address], [facility] 01/12/2024 10:31:59 01/04/20 24 Allergy Immunotherapy Injections completed AYSE JACINTO [facility] 100 [facility],[address], [address], [facility] 01/04/2024 08:57:22 06/10/20 21 hysterectomy completed Monica Bonner [place] - [facility] 12/15/2023 11:32:03 05/13/20 08 appendectomy completed Monica Bonner [place] [facility] 12/15/2023 11:34:07 07/13/18 90 tonsillectomy completed Monica Bonner [place] [facility] 12/15/2023 11:33:40 Imaging Results None recorded. [...] mg tablet 12/14 completed Medicati on ID: [id number] Du ration Value: 21 Brand Name: ibuprofe n Send Method: E-Prescr ibed Sub s Allowed: subs OK Speci al Instruct ion: TAKE 1 TABLET BY MOUTH 3 TIMES A DAY Medi cationGe nericNam e: ibuprofe n Medica tion ID: [id number] Du ration Value: 21 Brand Name: ibuprofe [...] mg tablet 12/14 completed Medicati on ID: [id number] Du ration Value: 5 Brand Name: hydrocod one-acet aminophe n Send Method: E-Prescr ibed Sub s Allowed: subs OK Speci al Instruct ion: TAKE 1 TABLET BY MOUTH EVERY 4 HOURS NEEDED FOR PAIN Med icationG enericNa me: hydrocod one-acet aminophe n Medica tion ID: [id number] Du ration Value: 5 Brand Name: hydrocod [...] mg tablet 12/14 completed Medicati on ID: [id number] Du ration Value: 30 Brand Name: surendraazepa m Send Method: E-Prescr ibed Sub s Allowed: subs OK Speci al Instruct ion: TAKE 1 TABLET BY MOUTH AT BEDTIME Medicati onGeneri cName: lorazepa m Medica tion ID: [id number] Du ration Value: 30 Brand Name: lorazepa [...] dose pack 12/14 completed Medicati on ID: [id number] Du ration Value: 6 Brand Name: methylpr ednisolo ne Send Method: E-Prescr ibed Sub s Allowed: subs OK Speci al Instruct ion: TAKE DIRECTED ON PATIENT INSTRUCT ION CARD. Id dication GenericN chuck: methylpr ednisolo ne Medic ation ID: [id number] Du ration Value: 6 Brand Name: methylpr ednisolo ne Send Method: E-Prescr ibed Sub s Allowed: subs OK Speci al Instruct ion: TAKE DIRECTED ON PATIENT INSTRUCT ION CARD. Me dication GenericN chuck: methylpr ednisolo ne Not Available Not Available Not Available Percocet 5 mg-325 mg tablet 1-2 tablet by mouth 12/14 completed Medicati on ID: [id number] Pr escribed By Name: Bret Yip MD Brand Name: Percocet Send Method: E-Prescr ibed Sub s Allowed: subs OK Medic ationGen ericName : Percocet Medicat ion ID: [id number] Pr escribed By Name: Bret Yip MD [...] suspensio n 12/14 completed Medicati on ID: [id number] Du ration Value: 90 Brand Name: medroxyp rogester one Send Method: E-Prescr ibed Sub s Allowed: subs OK Speci al Instruct ion: INJECT 1 ML INTRAMUS CULARLY ONCE Med icationG enericNa me: medroxyp rogester one Medi cation ID: [id number] Du ration Value: 90 Brand Name: medroxyp [...] ICD10 Code Diagnosis IMO Codes Diagnosis Note [id number] BACILIO MENDOZA RN Allergy [address] [place] [address] 02/07/2025 11:13:38 02/07/2025 11:15:56 Perennial allergic rhinitis [id number] J30.89 [id number] BACILIO MENDOZA RN Allergy [address] [place] [address] 02/15/2025 11:11:09 02/15/2025 11:12:49 Perennial allergic rhinitis 918965997 J30.89 [id number] FORREST JOY Allergy [address] [place] [address] 02/22/2025 09:55:51 02/22/2025 10:03:15 Perennial allergic rhinitis 520943306 J30.89 [id number] MARIA A JIM MD [facility] [address] [address] 03/07/2025 07:57:29 03/07/2025 08:29:37 Seasonal allergic rhinitis 401971180 J30.2 The patient is benefiting from immunother apy and should continue. Can stop zyrtec if not helping with local reactions which are self limited. Epipen is current. f/u 6 months. Health Concerns Section Related Observation LastModified by Organization Detai ls LastModified Time None Recorded Concern Status LastModified by Organization Details LastModified Time None Recorded Payers Encounter Date Sequence Insurance Name Policy Number Policy العراقي Covered Member ID [id number] Member ID Guarantor Name 03/07/2025 1 [facility] [place] [id number] Monica Bonner [id number] Monica Bonner Notes Date Note Type Note Provider Name and Address Organization Details Recorded Time 03/07/2025 text/html ROS as noted in the HPI Began SCIT 12/2023. Has had local reactions at injection site which resolve same day. zyrtec hasn't helped the local reactions. No systemic reactions. MARIA A JIM MD [address] [place] [address], [address], [place] [facility] 03/07/2025 08:40:25 OBGyn Episode No OBEpisode recorded.
--- OUTSIDE RECORDS SUMMARY | 2025-05-30 03:26 | XMS_ITS | Continuity of Care Document ---
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 Name Role Phone HAMILTON MARROQUIN Primary Care Provider HMAILTON MARROQUIN Referring Provider Assessment Encounter Date Assessment Date Assessment LastModified by Organization Details LastModified Time 03/21/2025 03/21/2025 Visit With: Maira Taylor Use of Antihistamine s: No If yes: Vial Test Yes Change in medications: No If yes Increase in asthma symptoms If yes, inhaler use: Reaction to last injections: No If yes: Allergy Symptoms: Other: Missed: Dose Aware of Vial Test Aware: Notes: [email or web address] Not available 03/21/2025 13:39:59 Plan of Treatment Reminders Order Date Submit [...] : 4 12:20 PM (V67.00) Not Available [facility] 4 02:54:41 Hypertrop hy of nasal turbinate s 48828299 Active 2013 Nasal turbinate hypertrop hy Not Available [facility] 4 01:11:18 Deviated nasal septum 146440142 Active 2013 Nasal septal deviation Septal deviation / Deflectio n; Note: Date Diagnosed : 4 11:43 AM (470) Note: Date Diagnosed : 4 11:43 AM (470) ; Start Date : 4 Not Available [facility] 4 01:11:19 Allergic rhinitis 84756814 Active 2023 ANNE CASTILLO PA-C [address], [facility] [place], [address] , [facility] - [facility] 4 13:36:24 Seasonal allergic rhinitis 456122558 Active 2023 ANNE CASTILLO PA-C [address] [place],[address] [facility], [place], [address] , [facility] - [facility] [place] 4 13:36:24 Non-aller gic rhinitis [id number] 1 Active 2023 ANNE CASTILLO PA-C [address] [facility], [facility] [place], [address] , [facility] - [facility] [place] 4 13:36:24 Perennial allergic rhinitis 142791427 Active 2023 VANESA MACIAS, [facility] [address],[place] [address], [facility] [place], [address] , [facility] - [facility] [place] 5 11:27:54 Bacterial conjuncti vitis 720865516 Active 2024 TERRANCE MARRERO PA-C [address], [facility] [place], [address] , [facility] - [facility] [place] 5 10:03:46 Problem Notes None recorded. Procedures Surgical History Date Name Laterality Status Provider Name and Address Organization Details Recorded Time 05/23/20 25 Allergy Immunotherapy Injections completed Kristen Alanis [address], [place], [address], [facility] - [facility] [place] 05/23/2025 11:17:00 05/16/20 25 Allergy Immunotherapy Injections completed BACILIO MENDOZA RN [address], [place], [address], [place] [facility] 05/16/2025 13:47:58 05/09/20 25 Allergy Immunotherapy Injections completed FORREST JOY [address], [place], [address], [place] [facility] 05/09/2025 11:07:15 05/02/20 25 Allergy Immunotherapy Injections completed FORREST JOY [address], [place], [address], [place] [facility] 05/02/2025 11:57:44 04/20/20 25 Allergy Immunotherapy Injections completed VANESA EUBANKS RMA [address], [place], [address], [place] [facility] 04/20/2025 11:28:36 04/14/20 25 Allergy Immunotherapy Injections completed VANESA EUBANKS RMA [address], [place], [address], [place] [facility] 04/14/2025 10:36:34 03/28/20 25 Allergy Immunotherapy Injections active Kristen Alanis [address], [place], [address], [place] [facility] 03/28/2025 14:55:44 03/21/20 25 Allergy Immunotherapy Injections completed FORREST JOY [address], [place], [address], [place] [facility] 03/21/2025 13:39:49 03/15/20 25 Allergy Immunotherapy Injections completed VANESA MACIASC, RMA [address], [place], [address], [place] [facility] 03/15/2025 14:07:06 02/23/20 25 Allergy Immunotherapy Injections completed VANESA MACIASC, RMA [address], [place], [address], [place] [facility] 02/22/2025 09:58:06 02/16/20 25 Allergy Immunotherapy Injections completed Kristenangel luis Alanis [address], [place], [address], [place] [facility] 02/15/2025 11:12:02 02/08/20 25 Allergy Immunotherapy Injections completed VANESA KORZEC, RMA [address], [place], [address], [place] [facility] 02/07/2025 11:15:16 02/01/20 25 Allergy Immunotherapy Injections completed VANESA KORZEC, RMA [address], [place], [address], [place] [facility] 01/31/2025 13:40:41 01/26/20 25 Allergy Immunotherapy Injections completed MAIRA TAYLOR RMA [address], [place], [address], [place] [facility] 01/25/2025 13:59:25 01/18/20 25 Allergy Immunotherapy Injections completed VANESA KORZEC, RMA [address] [place] [address], [address], [place] [facility] 01/17/2025 13:57:21 01/11/20 25 Allergy Immunotherapy Injections completed VANESA JOSSELINZEC, RMA [address], [place], [address], [place] [facility] 01/10/2025 15:43:41 01/06/20 25 Allergy Immunotherapy Injections completed VANESA KORZEC, RMA [address], [place], [address], [place] [facility] 01/05/2025 11:20:03 12/28/19 25 Allergy Immunotherapy Injections completed VANESA KORZEC, RMA [address], [place], [address], [place] [facility] 12/27/2024 11:13:35 12/22/19 25 Allergy Immunotherapy Injections completed MAIRA TAYLOR RMA [address], [place], [address], [place] [facility] 12/21/2024 13:28:40 12/14/19 25 Allergy Immunotherapy Injections completed BACILIO MENDOZA RN [address], [place], [address], [facility] - [facility] [place] [place] 12/13/2024 14:28:43 12/08/19 25 Allergy Immunotherapy Injections completed VANESA MACIASC, RMA [address], [place], [address], [place] [facility] 12/07/2024 11:05:33 11/30/19 25 Allergy Immunotherapy Injections completed BACILIO MENDOZA RN [address], [place], [address], [place] [facility] 11/29/2024 15:05:15 11/23/19 25 Allergy Immunotherapy Injections completed VANESA MACIASC, RMA [address], [place], [address], [place] [facility] 11/22/2024 14:23:10 11/16/19 25 Allergy Immunotherapy Injections completed VANESA MACIASC, RMA [address], [place], [address], [facility] - [facility] [place] 11/15/2024 16:32:53 11/09/19 25 Allergy Immunotherapy Injections completed VANESA MACIASC, RMA [address], [place], [address], [facility] - [facility] [place] 11/08/2024 14:19:47 11/02/19 25 Allergy Immunotherapy Injections completed MAIRA TAYLOR RMA [address], [place], [address], [facility] - [facility] [place] 11/01/2024 14:29:07 10/26/19 25 Allergy Immunotherapy Injections completed VANESA EUBANKS, RMA [address], [place], [address], [place] [facility] 10/25/2024 14:49:37 10/19/19 25 Allergy Immunotherapy Injections completed SHERRI JOYA [address], [place], [address], [place] [facility] 10/18/2024 16:37:39 10/12/19 25 Allergy Immunotherapy Injections completed BACILIO MENDOZA RN [address], [place], [address], [place] [facility] 10/11/2024 10:42:29 10/06/19 25 Allergy Immunotherapy Injections completed FORREST JOY [address], [place], [address], [place] [facility] 10/05/2024 13:53:31 09/28/19 25 Allergy Immunotherapy Injections completed FORREST JOY [address], [place], [address], [place] [facility] 09/27/2024 15:32:03 09/22/19 25 Allergy Immunotherapy Injections completed FORREST JOY [address], [place], [address], [place] [facility] 09/21/2024 11:02:30 09/15/19 25 Allergy Immunotherapy Injections completed FORREST MORELOS [address] [place] [address], [address], [place] [facility] 09/14/2024 10:17:23 09/06/19 25 Allergy Immunotherapy Injections completed FORREST JOY [address] [place] [address], [address], [place] [facility] 09/06/2024 13:16:45 08/30/19 25 Allergy Immunotherapy Injections completed BACILIO MENDOZA RN [address] [place] [address], [address], [place] [facility] 08/30/2024 13:52:24 08/23/19 25 Allergy Immunotherapy Injections completed FORREST MORELOS [address] [place] [address], [address], [place] [facility] 08/23/2024 14:55:08 08/09/19 25 Allergy Immunotherapy Injections completed BACILIO MENDOZA RN [address], [place], [address], [place] [facility] 08/09/2024 15:22:41 08/02/19 25 Allergy Immunotherapy Injections completed VANESA KORZEC, RMA [address], [place], [address], [place] [facility] 08/02/2024 15:04:00 07/19/19 25 Allergy Immunotherapy Injections completed VANESA EUBANKS, RMA [address], [place], [address], [place] [facility] 07/19/2024 15:23:58 07/12/20 24 Allergy Immunotherapy Injections completed ABCILIO MENDOZA RN [address], [place], [address], [place] [facility] 07/12/2024 13:45:49 06/28/20 24 Allergy Immunotherapy Injections completed FORREST JOY [address], [place], [address], [place] [facility] 06/28/2024 15:47:41 06/21/20 24 Allergy Immunotherapy Injections completed VANESA EUBANKS, RMA [address], [place], [address], [place] [facility] 06/21/2024 15:48:40 06/14/20 24 Allergy Immunotherapy Injections completed BACILIO MENDOZA RN [address] [place] [address], [address], [place] [facility] 06/14/2024 16:08:49 06/07/20 24 Allergy Immunotherapy Injections completed FORREST JOY [address] [place] [address], [address], [place] [facility] 06/07/2024 14:26:02 05/31/20 24 Allergy Immunotherapy Injections completed VANESA EUBANKS RMA [address], [place], [address], [place] [facility] 05/31/2024 11:54:08 05/19/20 24 Allergy Immunotherapy Injections completed FORREST JOY [address], [place], [address], [place] [facility] 05/19/2024 16:27:30 05/13/20 24 Allergy Immunotherapy Injections completed VANESA EUBANKS, RMA [address], [place], [address], [place] [facility] 05/13/2024 15:25:52 05/04/20 24 Allergy Immunotherapy Injections completed BACILIO MENDOZA RN [address], [place], [address], [place] [facility] 05/04/2024 14:55:11 04/27/20 24 Allergy Immunotherapy Injections completed MAIRA TAYLOR RMA [address], [place], [address], [place] [facility] 04/27/2024 11:50:31 04/15/20 24 Allergy Immunotherapy Injections completed SHERRI JOYA [address], [place], [address], [place] [facility] 04/15/2024 13:28:07 04/07/20 24 Allergy Immunotherapy Injections completed VANESA EUBANKS, RMA [address], [place], [address], [place] [facility] 04/07/2024 15:08:26 03/16/20 24 Allergy Immunotherapy Injections completed VANESA EUBANKS RMA [address], [place], [address], [place] [facility] 03/16/2024 15:48:00 03/09/20 24 Allergy Immunotherapy Injections completed VANESA EUBANKS RMA [address], [place], [address], [place] [facility] 03/09/2024 16:03:35 03/01/20 24 Allergy Immunotherapy Injections completed MAIRA TAYLOR RMA [address], [place], [address], [place] [facility] 03/01/2024 14:19:16 02/23/20 24 Allergy Immunotherapy Injections completed VANESA EUBANKS, RMA [address], [place], [address], [place] [facility] 02/23/2024 14:52:37 02/16/20 24 Allergy Immunotherapy Injections completed VANESA EUBANKS, RMA [address], [place], [address], [place] [facility] 02/16/2024 16:09:42 02/09/20 24 Allergy Immunotherapy Injections completed BACILIO MENDOZA RN [address], [place], [address], [place] [facility] 02/09/2024 15:05:18 02/02/20 24 Allergy Immunotherapy Injections completed BACILIO MENDOZA RN [address], [place], [address], [place] [facility] 02/02/2024 11:23:37 01/26/20 24 Allergy Immunotherapy Injections completed MAIRA TAYLOR, [facility] [address], [place], [address], [place] [facility] 01/26/2024 14:21:13 01/12/20 24 Allergy Immunotherapy Injections completed FORREST JOY [address], [place], [address], [place] [facility] 01/12/2024 10:31:59 01/04/20 24 Allergy Immunotherapy Injections completed FORREST JOY [address], [place], [address], [place] [facility] 01/04/2024 08:57:22 06/10/20 21 hysterectomy completed Monica Bonner [place] [facility] 12/15/2023 11:32:03 05/13/20 08 appendectomy completed Monica Bonner [place] [facility] 12/15/2023 11:34:07 07/13/18 90 tonsillectomy completed Monica Bonner [place] [facility] 12/15/2023 11:33:40 Imaging Results None recorded. Procedure [...] mg tablet 12/14 completed Medicati on ID: [id number] Du ration Value: 21 Brand Name: ibuprofe n Send Method: E-Prescr ibed Sub s Allowed: subs LIZBETH Speci al Instruct ion: TAKE 1 TABLET BY MOUTH 3 TIMES A DAY Medi cationGe nericNam e: ibuprofe n Medica tion ID: [id number] Du ration Value: 21 Brand Name: ibuprofe [...] mg tablet 12/14 completed Medicati on ID: [id number] Du ration Value: 5 Brand Name: hydrocod one-acet aminophe n Send Method: E-Prescr ibed Sub s Allowed: subs OK Speci al Instruct ion: TAKE 1 TABLET BY MOUTH EVERY 4 HOURS NEEDED FOR PAIN Med icationG enericNa me: hydrocod one-acet aminophe n Medica tion ID: [id number] Du ration Value: 5 Brand Name: hydrocod one-acet aminophe n Send Method: E-Prescr ibed Sub s Allowed: subs LIZBETH Speci al Instruct ion: TAKE 1 TABLET [...] mg tablet 12/14 completed Medicati on ID: [id number] Du ration Value: 30 Brand Name: lorazepa m Send Method: E-Prescr ibed Sub s Allowed: subs OK Speci al Instruct ion: TAKE 1 TABLET BY MOUTH AT BEDTIME Medicati onGeneri cName: lorazepa m Medica tion ID: [id number] Du ration Value: 30 Brand Name: lorazepa [...] dose pack 12/14 completed Medicati on ID: [id number] Du ration Value: 6 Brand Name: methylpr ednisolo ne Send Method: E-Prescr ibed Sub s Allowed: subs OK Speci al Instruct ion: TAKE DIRECTED ON PATIENT INSTRUCT ION CARD. Me dication GenericN chuck: methylpr ednisolo ne Medic ation ID: [id number] Du ration Value: 6 Brand Name: methylpr ednisolo ne Send Method: E-Prescr ibed Sub s Allowed: subs OK Speci al Instruct ion: TAKE DIRECTED ON PATIENT INSTRUCT ION CARD. Me dication GenericN chuck: methylpr ednisolo ne Not Available Not Available Not Available Percocet 5 mg-325 mg tablet 1-2 tablet by mouth 12/14 completed Medicati on ID: [id number] Pr escribed By Name: Bret Yip MD Brand Name: Percocet Send Method: E-Prescr ibed Sub s Allowed: subs OK Medic ationGen ericName : Percocet [place] ID: [id number] Pr escribed By Name: Bret Yip MD [...] suspensio n 12/14 completed Medicati on ID: [id number] Du ration Value: 90 Brand Name: medroxyp rogester one Send Method: E-Prescr ibed Sub s Allowed: subs OK Speci al Instruct ion: INJECT 1 ML INTRAMUS CULARLY ONCE Med icationG enericNa me: medroxyp rogester one Medi cation ID: [id number] Du ration Value: 90 Brand Name: medroxyp [...] ICD10 Code Diagnosis IMO Codes Diagnosis Note [id number] MAIRA TAYLOR A Allergy [address] [address] 02/22/2025 09:55:51 02/22/2025 10:03:15 Perennial allergic rhinitis [id number] J30.89 [id number] MARIA A JIM MD [facility] [address] [place] [address] 03/07/2025 07:57:29 03/07/2025 08:29:37 Seasonal allergic rhinitis [id number] J30.2 The patient is benefiting from immunother apy and should continue. Can stop zyrtec if not helping with local reactions which are self limited. Epipen is current. f/u 6 months. [id number] VANESA EUBANKS A Allergy [address] [address] 03/15/2025 14:06:12 03/15/2025 14:07:29 Perennial allergic rhinitis [id number] J30.89 [id number] FORREST JOY Allergy [address] [place] [address] ANGEL LUIS ARIAS [address] 03/21/2025 13:38:43 03/21/2025 13:40:21 Perennial allergic rhinitis [id number] J30.89 Health Concerns Section Related Observation LastModified by Organization Detai ls LastModified Time None Recorded Concern Status LastModified by Organization Details LastModified Time None Recorded Payers Encounter Date Sequence Insurance Name Policy Number Policy [id number] Covered Member ID [id number] Member ID Guarantor Name 03/21/2025 1 [facility] [id number] Monica Bonner [id number] Monica Bonner OBGyn Episode No OBEpisode recorded.
--- OUTSIDE RECORDS SUMMARY | 2025-05-30 03:27 | XMS_ITS | Continuity of Care Document ---
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 Name Role Phone HAMILTON MARROQUIN Primary Care Provider [phone] HAMILTON MARROQUIN Referring Provider Assessment Encounter Date Assessment Date Assessment LastModified by Organization Details LastModified Time 05/16/2025 05/16/2025 Visit With: Maira Taylor Use of Antihistamine s: No If yes: Vial Test Change in medications: No If yes Increase in asthma symptoms If yes, inhaler use: Reaction to last injections: No If yes: Allergy Symptoms: Other: Missed: Dose Aware of Vial Test Aware: Notes:chemoth erapy 05/12 hlorinser Not available 05/16/2025 13:48:17 Plan of Treatment Reminders Order Date Submit [...] : 4 12:20 PM (V67.00) Not Available [facility] 4 02:54:41 Hypertrop hy of nasal turbinate s 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 Active 2013 Nasal turbinate hypertrop hy Not Available [facility] 4 01:11:18 Deviated nasal septum 426452084 Active 2013 Nasal septal deviation Septal deviation / Deflectio n; Note: Date Diagnosed : 4 11:43 AM (470) Note: Date Diagnosed : 4 11:43 AM (470) ; Start Date : 4 Not Available [facility] 4 01:11:19 Allergic rhinitis 12050473 Active 2023 ANNE CASTILLO PA-C [address], [place], [address] , [facility] - [facility] 4 13:36:24 Seasonal allergic rhinitis 416075471 Active 2023 ANNE CASTILLO PA-C [address], [place], [address] , [facility] - [facility] 4 13:36:24 Non-aller gic rhinitis 13816452214 1 Active 2023 ANNE CASTILLO PA-C [address], [place], [address] , [facility] - [facility] 4 13:36:24 Perennial allergic rhinitis 364664088 Active 2023 VANESA MACIAS, [facility] [address], [facility], [address] , [facility] - [facility] 5 11:27:54 Bacterial conjuncti vitis 279388410 Active 2024 TERRANCE MARRERO PA-C [address], [place], [address] , [facility] - [facility] 5 10:03:46 Problem Notes None recorded. Procedures Surgical History Date Name Laterality Status Provider Name and Address Organization Details Recorded Time 05/23/20 25 Allergy Immunotherapy Injections completed Kristen Alanis [address], [place], [address], [facility] - [facility] 05/23/2025 11:17:00 05/16/20 25 Allergy Immunotherapy Injections completed BACILIO MENDOZA RN [address], [place], [address], [place] [facility] 05/16/2025 13:47:58 05/09/20 25 Allergy Immunotherapy Injections completed FORREST JOY [address], [place], [address], [place] [facility] 05/09/2025 11:07:15 05/02/20 25 Allergy Immunotherapy Injections completed FORREST JOY [address], [place], [address], [place] [facility] 05/02/2025 11:57:44 04/20/20 25 Allergy Immunotherapy Injections completed VANESA EUBANKS RMA [address], [place], [address], [place] [facility] 04/20/2025 11:28:36 04/14/20 25 Allergy Immunotherapy Injections completed VANESA EUBANKS RMA [address] [place] [address], [address], [place] [facility] 04/14/2025 10:36:34 03/28/20 25 Allergy Immunotherapy Injections active Kristen Alanis [address] [place] [address], [address], [facility] - [facility] 03/28/2025 14:55:44 03/21/20 25 Allergy Immunotherapy Injections completed FORREST JOY [address] [place] [place] [address], [address], [place] [facility] 03/21/2025 13:39:49 03/15/20 25 Allergy Immunotherapy Injections completed VANESA EUBANKS RMA [address], [place], [address], [place] [facility] 03/15/2025 14:07:06 02/23/20 25 Allergy Immunotherapy Injections completed VANESA EUBANKS RMA [address], [place], [address], [place] [facility] 02/22/2025 09:58:06 02/16/20 25 Allergy Immunotherapy Injections completed Kristenangel luis Alanis [address], [place], [address], [facility] - [facility] 02/15/2025 11:12:02 02/08/20 25 Allergy Immunotherapy Injections completed VANESA KORZEC, RMA [address], [place], [address], [facility] - [facility] 02/07/2025 11:15:16 02/01/20 25 Allergy Immunotherapy Injections completed VANESA KORZEC, RMA [address], [place], [address], [place] [facility] 01/31/2025 13:40:41 01/26/20 25 Allergy Immunotherapy Injections completed MAIRA TAYLOR RMA [address], [place], [address], [facility] - [facility] 01/25/2025 13:59:25 01/18/20 25 Allergy Immunotherapy Injections completed VANESA KORZEC, RMA [address], [place], [address], [facility] - [facility] 01/17/2025 13:57:21 01/11/20 25 Allergy Immunotherapy Injections completed VANESA KORZEC, RMA [address], [place], [address], [facility] - [facility] 01/10/2025 15:43:41 01/06/20 25 Allergy Immunotherapy Injections completed VANESA KORZEC, RMA [address] [place] [address], [address], [facility] - [facility] 01/05/2025 11:20:03 12/28/19 25 Allergy Immunotherapy Injections completed VANESA KORZEC, RMA [address], [place], [address], [place] [facility] 12/27/2024 11:13:35 12/22/19 25 Allergy Immunotherapy Injections completed MAIRA TAYLOR RMA [address], [place], [address], [place] [facility] 12/21/2024 13:28:40 12/14/19 25 Allergy Immunotherapy Injections completed BACILIO MENDOZA RN [address], [place], [address], [place] [facility] 12/13/2024 14:28:43 12/08/19 25 Allergy Immunotherapy Injections completed VANESA EUBANKS, RMA [address], [place], [address], [place] [facility] 12/07/2024 11:05:33 11/30/19 25 Allergy Immunotherapy Injections completed BACILIO MENDOZA RN [address], [place], [address], [place] [facility] 11/29/2024 15:05:15 11/23/19 25 Allergy Immunotherapy Injections completed VANESA EUBANKS RMA [address], [place], [address], [place] [facility] 11/22/2024 14:23:10 11/16/19 25 Allergy Immunotherapy Injections completed VANESA EUBANKS RMA [address], [place], [address], [place] [facility] 11/15/2024 16:32:53 11/09/19 25 Allergy Immunotherapy Injections completed VANESA EUBANKS RMA [address], [place], [address], [place] [facility] 11/08/2024 14:19:47 11/02/19 25 Allergy Immunotherapy Injections completed FORREST JOY [address], [place], [address], [place] [facility] 11/01/2024 14:29:07 10/26/19 25 Allergy Immunotherapy Injections completed VANESA EUBANKS RMA [address], [place], [address], [place] [facility] 10/25/2024 14:49:37 10/19/19 25 Allergy Immunotherapy Injections completed FORREST JOY [address], [place], [address], [place] [facility] 10/18/2024 16:37:39 10/12/19 25 Allergy Immunotherapy Injections completed BACILIO MENDOZA RN [address], [place], [address], [place] [facility] 10/11/2024 10:42:29 10/06/19 25 Allergy Immunotherapy Injections completed FORREST JOY [address], [place], [address], [place] [facility] 10/05/2024 13:53:31 09/28/19 25 Allergy Immunotherapy Injections completed FORREST JOY [address], [place], [address], [place] [facility] 09/27/2024 15:32:03 09/22/19 25 Allergy Immunotherapy Injections completed FORREST JOY [address], [place], [address], [place] [facility] 09/21/2024 11:02:30 09/15/19 25 Allergy Immunotherapy Injections completed VANESA EUBANKS RMCecily [address] [place] [address], [address], [place] [facility] 09/14/2024 10:17:23 09/06/19 25 Allergy Immunotherapy Injections completed FORREST JOY [address], [place], [address], [place] [facility] 09/06/2024 13:16:45 08/30/19 25 Allergy Immunotherapy Injections completed BACILIO MENDOZA RN [address] [place] [address], [address], [place] [facility] 08/30/2024 13:52:24 08/23/19 25 Allergy Immunotherapy Injections completed VANESA EUBANKS RMCecily [address], [place], [address], [place] [facility] 08/23/2024 14:55:08 08/09/19 25 Allergy Immunotherapy Injections completed BACILIO MENDOZA RN [address], [place], [address], [place] [facility] 08/09/2024 15:22:41 08/02/19 25 Allergy Immunotherapy Injections completed VANESA EUBANKS, RMA [address], [place], [address], [place] [facility] 08/02/2024 15:04:00 07/19/19 25 Allergy Immunotherapy Injections completed VANESA EUBANKS, RMA [address], [place], [address], [place] [facility] 07/19/2024 15:23:58 07/12/20 24 Allergy Immunotherapy Injections completed BACILIO MENDOZA RN [address], [place], [address], [place] [facility] 07/12/2024 13:45:49 06/28/20 24 Allergy Immunotherapy Injections completed FORREST JOY [address], [place], [address], [place] [facility] 06/28/2024 15:47:41 06/21/20 24 Allergy Immunotherapy Injections completed VANESA EUBANKS, RMA [address], [place], [address], [place] [facility] 06/21/2024 15:48:40 06/14/20 24 Allergy Immunotherapy Injections completed BACILIO MENDOZA RN [address], [place], [address], [place] [facility] 06/14/2024 16:08:49 06/07/20 24 Allergy Immunotherapy Injections completed FORREST JOY [address], [place], [address], [place] [facility] 06/07/2024 14:26:02 05/31/20 24 Allergy Immunotherapy Injections completed VANESA EUBANKS RMA [address], [place], [address], [place] [facility] 05/31/2024 11:54:08 05/19/20 24 Allergy Immunotherapy Injections completed FORREST JOY [address], [place], [address], [place] [facility] 05/19/2024 16:27:30 05/13/20 24 Allergy Immunotherapy Injections completed VANESA EUBANKS, RMA [address], [place], [address], [place] [facility] 05/13/2024 15:25:52 05/04/20 24 Allergy Immunotherapy Injections completed BACILIO MENDOZA RN [address], [place], [address], [place] [facility] 05/04/2024 14:55:11 04/27/20 24 Allergy Immunotherapy Injections completed MAIRA TAYLOR RMA [address], [place], [address], [place] [facility] 04/27/2024 11:50:31 04/15/20 24 Allergy Immunotherapy Injections completed MAIRA TAYLOR RMA [address], [place], [address], [place] [facility] 04/15/2024 13:28:07 04/07/20 24 Allergy Immunotherapy Injections completed VANESA EUBANKS, RMA [address], [place], [address], [place] [facility] 04/07/2024 15:08:26 03/16/20 24 Allergy Immunotherapy Injections completed VANESA MACIASC, RMA [address], [place], [address], [place] [facility] 03/16/2024 15:48:00 03/09/20 24 Allergy Immunotherapy Injections completed VANESA MACIASC RMA [address], [place], [address], [place] [facility] 03/09/2024 16:03:35 03/01/20 24 Allergy Immunotherapy Injections completed MAIRA TAYLOR RMA [address], [place], [address], [place] [facility] 03/01/2024 14:19:16 02/23/20 24 Allergy Immunotherapy Injections completed VANESA MACIASC, RMA [address], [place], [address], [place] [facility] 02/23/2024 14:52:37 02/16/20 24 Allergy Immunotherapy Injections completed VANESA EUBANKS, RMA [address], [place], [address], [place] [facility] 02/16/2024 16:09:42 02/09/20 24 Allergy Immunotherapy Injections completed BACILIO MENDOZA RN [address], [place], [address], [place] [facility] 02/09/2024 15:05:18 02/02/20 24 Allergy Immunotherapy Injections completed BACILIO MENDOZA RN [address], [place], [address], [place] [facility] 02/02/2024 11:23:37 01/26/20 24 Allergy Immunotherapy Injections completed MAIRA TAYLOR [facility] [address], [place], [address], [place] [facility] 01/26/2024 14:21:13 01/12/20 24 Allergy Immunotherapy Injections completed FORREST JOY [address], [place], [address], [place] [facility] 01/12/2024 10:31:59 01/04/20 24 Allergy Immunotherapy Injections completed FORREST JOY [address], [place], [address], [place] [facility] 01/04/2024 08:57:22 06/10/20 21 hysterectomy completed Monica Bonner [place] [facility] 12/15/2023 11:32:03 05/13/20 08 appendectomy completed Monica Bonner [place] [facility] 12/15/2023 11:34:07 07/13/18 90 tonsillectomy completed Moncia Bonner [place] [facility] 12/15/2023 11:33:40 Imaging Results None recorded. [...] mg tablet 12/14 completed Medicati on ID: [id number] Du ration Value: 21 Brand Name: ibuprofe n Send Method: E-Prescr ibed Sub s Allowed: subs OK Speci al Instruct ion: TAKE 1 TABLET BY MOUTH 3 TIMES A DAY Medi cationGe nericNam e: ibuprofe n Medica tion ID: [id number] Du ration Value: 21 Brand Name: ibuprofe [...] mg tablet 12/14 completed Medicati on ID: [id number] Du ration Value: 5 Brand Name: hydrocod one-acet aminophe n Send Method: E-Prescr ibed Sub s Allowed: subs OK Speci al Instruct ion: TAKE 1 TABLET BY MOUTH EVERY 4 HOURS NEEDED FOR PAIN Med icationG enericNa me: hydrocod one-acet aminophe n Medica tion ID: [id number] Du ration Value: 5 Brand Name: hydrocod [...] mg tablet 12/14 completed Medicati on ID: [id number] Du ration Value: 30 Brand Name: zaya juan Send Method: E-Prescr ibed Sub s Allowed: subs OK Speci al Instruct ion: TAKE 1 TABLET BY MOUTH AT BEDTIME Medicati onGeneri cName: lorazepa m Medica tion ID: [id number] Du ration Value: 30 Brand Name: lorazepa [...] dose pack 12/14 completed Medicati on ID: [id number] Du ration Value: 6 Brand Name: methylpr ednisolo ne Send Method: E-Prescr ibed Sub s Allowed: subs OK Speci al Instruct ion: TAKE DIRECTED ON PATIENT INSTRUCT ION CARD. Me dication GenericN chuck: methylpr ednisolo ne Medic ation ID: [id number] Du ration Value: 6 Brand Name: methylpr ednisolo ne Send Method: E-Prescr ibed Sub s Allowed: subs OK Speci al Instruct ion: TAKE DIRECTED ON PATIENT INSTRUCT ION CARD. Me dication GenericN chuck: methylpr ednisolo ne Not Available Not Available Not Available Percocet 5 mg-325 mg tablet 1-2 tablet by mouth 12/14 completed Medicati on ID: [id number] Pr escribed By Name: Bret Yip MD Brand Name: Percocet Send Method: E-Prescr ibed Sub s Allowed: subs OK Medic ationGen ericName : Percocet Medicat ion ID: [id number] Pr escribed By Name: Bret Yip MD [...] suspensio n 12/14 completed Medicati on ID: [id number] Du ration Value: 90 Brand Name: medroxyp rogester one Send Method: E-Prescr ibed Sub s Allowed: subs OK Speci al Instruct ion: INJECT 1 ML INTRAMUS CULARLY ONCE Med icationG enericNa me: medroxyp rogester one Medi cation ID: [id number] Du ration Value: 90 Brand Name: medroxyp [...] History Nothing Reported. Medical History Condition Response High Cholesterol Y Allergies/Hayfever Y Gynecological HistoryNo gynecological history recorded. Obstetrics History GPAL:G 0 P 0 0 0 0 Past Encounters Encounter ID Performer Location Encounter Start Date Encounter Closed Date Diagnosis/Indication Diagnosis SNOMED-CT Code Diagnosis ICD10 Code Diagnosis IMO Codes Diagnosis Note [id number] [facility] [address] [place] [address] 04/20/2025 11:27:23 04/20/2025 11:29:25 Perennial allergic rhinitis 815394448 J30.89 [id number] [facility] Allergy [address] [place] [address] [address] [place] [address] 05/02/2025 11:53:43 05/02/2025 11:58:04 Perennial allergic rhinitis [id number] J30.89 [id number] MAIRA TAYLOR [facility] Allergy [address] [place] [address] [address] [place] [address] 05/09/2025 11:05:10 05/09/2025 11:08:33 Perennial allergic rhinitis [id number] J30.89 [id number] MAIRA ORVILLE, RMA Allergy [address] [place] [address] 100 [facility] [place] [address] 05/16/2025 13:47:01 05/16/2025 13:48:37 Perennial allergic rhinitis 923095096 J30.89 Health Concerns Section Related Observation LastModified by Organization Detai ls LastModified Time None Recorded Concern Status LastModified by Organization Details LastModified Time None Recorded Payers Encounter Date Sequence Insurance Name Policy Number Policy [id number] Covered Member ID [id number] Member ID Guarantor Name 05/16/2025 1 [facility] [id number] Monica Bonner [id number] Monica Bonner OBGyn Episode No OBEpisode recorded.
--- OUTSIDE RECORDS SUMMARY | 2025-05-30 03:27 | XMS_ITS | Data Portability ---
Author Organization [place] [facility], Allergy Address [address] [place] [address] Care Team Providers Care Bread Slicer Machine Name Role Phone HAMILTON MARROQUIN Primary Care Provider HAMILTON MARROQUIN Referring Provider Assessment Encounter Date Assessment Date Assessment LastModified by Organization Details LastModified Time 04/20/2025 04/20/2025 Visit With: FORREST Velasquez Use of Antihistamine s: No If yes: Vial Test Change in medications: No If yes Increase in asthma symptoms If yes, inhaler use: Reaction to last injections: No If yes: Allergy Symptoms: Other: Missed: Dose Aware of Vial Test Aware: Notes:flu shot yesterday robert Not available 04/20/2025 11:29:07 05/02/2025 05/02/2025 Visit With: FORREST Velasquez Use of Antihistamine s: Yes If yes: Vial Test Change in medications: No If yes Increase in asthma symptoms If yes, inhaler use: Reaction to last injections: No If yes: Allergy Symptoms: Other: Missed: Dose Aware of Vial Test Aware: Notes: [email or web address] Not available 05/02/2025 11:57:14 05/09/2025 05/09/2025 Visit With: Maira Jacinto Use of Antihistamine s: No If yes: Vial Test Change in medications: No If yes Increase in asthma symptoms If yes, inhaler use: Reaction to last injections: No If yes: Allergy Symptoms: Other: Missed: Dose Aware of Vial Test Aware: Notes: [email or web address] Not available 05/09/2025 11:07:20 05/16/2025 05/16/2025 Visit With: Maira Jacinto Use of Antihistamine s: No If yes: Vial Test Change in medications: No If yes Increase in asthma symptoms If yes, inhaler use: Reaction to last injections: No If yes: Allergy Symptoms: Other: Missed: Dose Aware of Vial Test Aware: Notes:chemoth erapy 05/12 [email or web address] Not available 05/16/2025 13:48:17 05/23/2025 05/23/2025 Visit With: FORREST Velasquez Use of Antihistamine s: No If yes: Vial Test Change in medications: No If yes Increase in asthma symptoms No Asthma Hx If yes, inhaler use: Reaction to last injections: No If yes: Allergy Symptoms: Other: Missed: Dose Aware of Vial Test Aware: Notes: [email or web address] Not available 05/23/2025 11:17:11 Plan of Treatment [...] : 4 12:20 PM (V67.00) Not Available [facility] 4 02:54:41 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 4 13:36:24 Seasonal allergic rhinitis 363094711 Active 2023 ANNE CASTILLO PA-C [address], [place], [address] , [facility] - [facility] 4 13:36:24 Non-aller gic rhinitis [id number] 1 Active 2023 ANNE CASTILLO PA-C [address], [place], [address] , [place] [facility] 4 13:36:24 Perennial allergic rhinitis 959338674 Active 2023 VANESA EUBANKS Cecily [address], [place], [address] , [facility] 5 11:27:54 Bacterial conjuncti vitis 663061359 Active 2024 TERRANCE MARRERO PA-C [address], [place], [address] , [facility] - [facility] 5 10:03:46 Problem Notes None recorded. Procedures Surgical History Date Name Laterality Status Provider Name and Address Organization Details Recorded Time 05/23/20 25 Allergy Immunotherapy Injections completed Kristen Alanis [address] [facility] [place],[address] [facility], [place], [address], [facility] 05/23/2025 11:17:00 05/16/20 25 Allergy Immunotherapy Injections completed BACILIO MENDOZA RN [address] [facility], [place], [address], [facility] - [facility] 05/16/2025 13:47:58 05/09/20 25 Allergy Immunotherapy Injections completed FORREST JOY [address] [facility] [place],[address] [facility], [place], [address], [facility] 05/09/2025 11:07:15 05/02/20 25 Allergy Immunotherapy Injections completed MAIRA ORVILLE, RMA [address], [place], [address], [place] [facility] 05/02/2025 11:57:44 04/20/20 25 Allergy Immunotherapy Injections completed VANESA KORZEC, RMA [address], [place], [address], [place] [facility] 04/20/2025 11:28:36 04/14/20 25 Allergy Immunotherapy Injections completed VANESA KORZEC, RMA [address], [place], [address], [place] [facility] 04/14/2025 10:36:34 03/28/20 25 Allergy Immunotherapy Injections active Kristen Zeke [address], [place], [address], [place] [facility] 03/28/2025 14:55:44 03/21/20 25 Allergy Immunotherapy Injections completed MAIRA JACINTO RMA [address], [place], [address], [place] [facility] 03/21/2025 13:39:49 03/15/20 25 Allergy Immunotherapy Injections completed VANESA KORZEC, RMA [address], [place], [address], [place] [facility] 03/15/2025 14:07:06 02/23/20 25 Allergy Immunotherapy Injections completed VANESA KORZEC, RMA [address], [place], [address], [place] [facility] 02/22/2025 09:58:06 02/16/20 25 Allergy Immunotherapy Injections completed Kristen Zeke [address], [place], [address], [place] [facility] 02/15/2025 11:12:02 02/08/20 25 Allergy Immunotherapy Injections completed VANESA KORZEC, RMA [address], [place], [address], [place] [facility] 02/07/2025 11:15:16 02/01/20 25 Allergy Immunotherapy Injections completed VANESA KORZEC, RMA [address], [place], [address], [place] [facility] 01/31/2025 13:40:41 01/26/20 25 Allergy Immunotherapy Injections completed SHERRI JOYA [address], [place], [address], [place] [facility] 01/25/2025 13:59:25 01/18/20 25 Allergy Immunotherapy Injections completed VANESA EUBANKS, RMA [address], [place], [address], [place] [facility] 01/17/2025 13:57:21 01/11/20 25 Allergy Immunotherapy Injections completed VANESA EUBANKS, RMA [address], [place], [address], [place] [facility] 01/10/2025 15:43:41 01/06/20 25 Allergy Immunotherapy Injections completed VANESA EUBANKS RMA [address] [facility] [place],[address] [place] [address], [address], [place] [facility] 01/05/2025 11:20:03 12/28/19 25 Allergy Immunotherapy Injections completed VANESA EUBANKS, RMA [address] [place] [address], [address], [place] [facility] 12/27/2024 11:13:35 12/22/19 25 Allergy Immunotherapy Injections completed MAIRA JACINTO RMA [address] [facility] [place],[address] [place] [address], [address], [place] [facility] 12/21/2024 13:28:40 12/14/19 25 Allergy Immunotherapy Injections completed BACILIO MENDOZA RN [address] [facility], [place], [address], [place] [facility] 12/13/2024 14:28:43 12/08/19 25 Allergy Immunotherapy Injections completed VANESA EUBANKS, RMA [address], [place], [address], [place] [facility] 12/07/2024 11:05:33 11/30/19 25 Allergy Immunotherapy Injections completed BACILIO MENDOZA RN [address], [place], [address], [place] [facility] 11/29/2024 15:05:15 11/23/19 25 Allergy Immunotherapy Injections completed VANESA EUBANKS, RMA [address], [place], [address], [place] [facility] 11/22/2024 14:23:10 11/16/19 25 Allergy Immunotherapy Injections completed VANESA EUBANKS, RMA [address], [place], [address], [place] [facility] 11/15/2024 16:32:53 11/09/19 25 Allergy Immunotherapy Injections completed VANESA EUBANKS RMA [address], [place], [address], [place] [facility] 11/08/2024 14:19:47 11/02/19 25 Allergy Immunotherapy Injections completed FORREST JOY [address], [place], [address], [place] [facility] 11/01/2024 14:29:07 10/26/19 25 Allergy Immunotherapy Injections completed VANESA EUBANKS RMA [address], [place], [address], [place] [facility] 10/25/2024 14:49:37 10/19/19 25 Allergy Immunotherapy Injections completed FORREST JOY [address], [place], [address], [place] [facility] 10/18/2024 16:37:39 10/12/19 25 Allergy Immunotherapy Injections completed BACILIO MENDOZA RN [address], [place], [address], [place] [facility] 10/11/2024 10:42:29 10/06/19 25 Allergy Immunotherapy Injections completed FORREST JOY [address], [place], [address], [place] [facility] 10/05/2024 13:53:31 09/28/19 25 Allergy Immunotherapy Injections completed FORREST JOY [address], [place], [address], [place] [facility] 09/27/2024 15:32:03 09/22/19 25 Allergy Immunotherapy Injections completed SHERRI JOYA [address], [place], [address], [place] [facility] 09/21/2024 11:02:30 09/15/19 25 Allergy Immunotherapy Injections completed VANESA EUBANKS RMA [address], [place], [address], [place] [facility] 09/14/2024 10:17:23 09/06/19 25 Allergy Immunotherapy Injections completed SHERRI JOYA [address], [place], [address], [place] [facility] 09/06/2024 13:16:45 08/30/19 25 Allergy Immunotherapy Injections completed BACILIO MENDOZA RN [address] [place] [address], [address], [place] [facility] 08/30/2024 13:52:24 08/23/19 25 Allergy Immunotherapy Injections completed VANESA EUBANKS RMA [address] [place] [address], [address], [place] [facility] 08/23/2024 14:55:08 08/09/19 25 Allergy Immunotherapy Injections completed BACILIO MENDOZA RN [address] [place] [address], [address], [place] [facility] 08/09/2024 15:22:41 08/02/19 25 Allergy Immunotherapy Injections completed VANESA EUBANKS RMA [address], [place], [address], [place] [facility] 08/02/2024 15:04:00 07/19/19 25 Allergy Immunotherapy Injections completed VANESA EUBANKS RMA [address], [place], [address], [place] [facility] 07/19/2024 15:23:58 07/12/20 24 Allergy Immunotherapy Injections completed BACILIO MENDOZA RN [address], [place], [address], [place] [facility] 07/12/2024 13:45:49 06/28/20 24 Allergy Immunotherapy Injections completed FORREST JOY [address], [place], [address], [place] [facility] 06/28/2024 15:47:41 06/21/20 24 Allergy Immunotherapy Injections completed VANESA EUBANKS RMCecily [address], [place], [address], [place] [facility] 06/21/2024 15:48:40 06/14/20 24 Allergy Immunotherapy Injections completed BACILIO MENDOZA RN [address], [place], [address], [place] [facility] 06/14/2024 16:08:49 06/07/20 24 Allergy Immunotherapy Injections completed FORREST JOY [address] [facility], [place], [address], [place] [facility] 06/07/2024 14:26:02 05/31/20 24 Allergy Immunotherapy Injections completed VANESA EUBANKS RMA [address], [place], [address], [place] [facility] 05/31/2024 11:54:08 05/19/20 24 Allergy Immunotherapy Injections completed FORREST JOY [address], [place], [address], [place] [facility] 05/19/2024 16:27:30 05/13/20 24 Allergy Immunotherapy Injections completed VANESA EUBANKS RMA [address], [place], [address], [place] [facility] 05/13/2024 15:25:52 05/04/20 24 Allergy Immunotherapy Injections completed BACILIO MENDOZA RN [address], [place], [address], [place] [facility] 05/04/2024 14:55:11 04/27/20 24 Allergy Immunotherapy Injections completed MAIRA JACINTO RMA [address], [place], [address], [place] [facility] 04/27/2024 11:50:31 04/15/20 24 Allergy Immunotherapy Injections completed MAIRA JACINTO RMA [address], [place], [address], [place] [facility] 04/15/2024 13:28:07 04/07/20 24 Allergy Immunotherapy Injections completed VANESA EUBANKS, RMA [address], [place], [address], [place] [facility] 04/07/2024 15:08:26 03/16/20 24 Allergy Immunotherapy Injections completed VANESA MACIASC, RMA [address], [place], [address], [place] [facility] 03/16/2024 15:48:00 03/09/20 24 Allergy Immunotherapy Injections completed VANESA EUBANKS RMA [address], [place], [address], [place] [facility] 03/09/2024 16:03:35 03/01/20 24 Allergy Immunotherapy Injections completed MAIRA JACINTO RMA [address], [place], [address], [place] [facility] 03/01/2024 14:19:16 02/23/20 24 Allergy Immunotherapy Injections completed VANESA EUBANKS RMA [address], [place], [address], [place] [facility] 02/23/2024 14:52:37 02/16/20 24 Allergy Immunotherapy Injections completed VANESA MACIASC, RMA [address], [place], [address], [place] [facility] 02/16/2024 16:09:42 02/09/20 24 Allergy Immunotherapy Injections completed BACILIO MENDOZA RN [address], [place], [address], [place] [facility] 02/09/2024 15:05:18 02/02/20 24 Allergy Immunotherapy Injections completed BACILIO MENDOZA RN [address] [facility],[address], [place], [address], [place] [facility] 02/02/2024 11:23:37 01/26/20 24 Allergy Immunotherapy Injections completed MAIRA JACINTO, [facility] [address], [place], [address], [place] [facility] 01/26/2024 14:21:13 01/12/20 24 Allergy Immunotherapy Injections completed MAIRA JACINTO [facility] [address] [facility] [place],[address], [place], [address], [place] [facility] 01/12/2024 10:31:59 01/04/20 24 Allergy Immunotherapy Injections completed MAIRA JACINTO [facility] [address] [facility],[address], [place], [address], [place] [facility] 01/04/2024 08:57:22 06/10/20 21 hysterectomy completed Monica Bonner [place] [facility] 12/15/2023 11:32:03 05/13/20 08 appendectomy completed Monica Bonner [place] [facility] 12/15/2023 11:34:07 07/13/18 90 tonsillectomy completed Monica Bonner [place] [facility] 12/15/2023 11:33:40 Imaging Results None recorded. Procedure [...] mg tablet 12/14 completed Medicati on ID: [id number] Du ration Value: 21 Brand Name: ibuprofe n Send Method: E-Prescr ibed Sub s Allowed: subs OK Speci al Instruct ion: TAKE 1 TABLET BY MOUTH 3 TIMES A DAY Medi cationGe nericNam e: ibuprofe n Medica tion ID: [id number] Du ration Value: 21 Brand Name: ibuprofe [...] mg tablet 12/14 completed Medicati on ID: [id number] Du ration Value: 5 Brand Name: hydrocod one-acet aminophe n Send Method: E-Prescr ibed Sub s Allowed: subs OK Speci al Instruct ion: TAKE 1 TABLET BY MOUTH EVERY 4 HOURS NEEDED FOR PAIN Med icationG enericNa me: hydrocod one-acet aminophe n Medica tion ID: [id number] Du ration Value: 5 Brand Name: hydrocod one-acet aminophe n Send Method: E-Prescr ibed Sub s Allowed: subs OK Jaredi al Instruct ion: TAKE 1 TABLET BY [...] mg tablet 12/14 completed Medicati on ID: [id number] Du ration Value: 30 Brand Name: bahman martinez Send Method: E-Prescr ibed Sub s Allowed: subs OK Speci al Instruct ion: TAKE 1 TABLET BY MOUTH AT BEDTIME Medicati onGeneri cName: lorazepa m Medica tion ID: [id number] Du ration Value: 30 Brand Name: lorazepa [...] dose pack 12/14 completed Medicati on ID: [id number] Du ration Value: 6 Brand Name: methylpr ednisolo ne Send Method: E-Prescr ibed Sub s Allowed: subs OK Speci al Instruct ion: TAKE DIRECTED ON PATIENT INSTRUCT ION CARD. Me dication GenericN chuck: methylpr ednisolo ne Medic ation ID: [id number] Du ration Value: 6 Brand Name: methylpr ednisolo ne Send Method: E-Prescr ibed Sub s Allowed: subs OK Speci al Instruct ion: TAKE DIRECTED ON PATIENT INSTRUCT ION CARD. Me dication GenericN chuck: methylpr ednisolo ne Not Available Not Available Not Available Percocet 5 mg-325 mg tablet 1-2 tablet by mouth 12/14 completed Medicati on ID: [id number] Pr escribed By Name: Bret Yip MD Brand Name: Percocet Send Method: E-Prescr ibed Sub s Allowed: subs OK Medic ationGen ericName : Percocet Medicat ion ID: [id number] Pr escribed By Name: Bret Yip MD [...] suspensio n 12/14 completed Medicati on ID: [id number] Du ration Value: 90 Brand Name: medroxyp rogester one Send Method: E-Prescr ibed Sub s Allowed: subs OK Speci al Instruct ion: INJECT 1 ML INTRAMUS CULARLY ONCE Med icationG enericNa me: medroxyp rogester one Medi cation ID: [id number] Du ration Value: 90 Brand Name: medroxyp [...] Available Not Available Not Available topiramat e 08/26 /2025 completed Not Available Not Available Not Available [...] ICD10 Code Diagnosis IMO Codes Diagnosis Note [id number] MAIRA JACINTO [facility] Allergy [address] [facility],[address] [place] [address] 01/04/2024 08:41:15 01/04/2024 11:54:19 Perennial allergic rhinitis [id number] J30.89 [id number] BACILIO MENDOZA RN Allergy [address] [place] [address],[address] [place] [address] 01/12/2024 10:30:16 01/12/2024 11:19:34 Perennial allergic rhinitis [id number] J30.89 [id number] MAIRA JACINTO [facility] Allergy [address] [place] [address],[address] [facility] [address] 01/26/2024 14:19:55 01/27/2024 13:21:46 Perennial allergic rhinitis [id number] J30.89 [id number] [facility] [address] [facility],[address] [place] [address] 02/02/2024 11:22:55 02/02/2024 11:24:30 Perennial allergic rhinitis [id number] J30.89 [id number] [facility], A Allergy [address] [facility],[address] [place] [address] 02/09/2024 15:04:07 02/09/2024 15:05:44 Perennial allergic rhinitis [id number] J30.89 [id number] [facility], [facility] Allergy [address] [facility],[address] [place] [address] 02/16/2024 16:08:03 02/16/2024 16:16:12 Perennial allergic rhinitis [id number] J30.89 [id number] [facility], A Allergy [address] [facility],[address] [place] [address] 02/23/2024 14:51:11 02/23/2024 16:20:22 Perennial allergic rhinitis [id number] J30.89 [id number] MAIRA JACINTO [facility] Allergy [address] [facility],[address] [place] [address] 03/01/2024 14:17:46 03/01/2024 15:51:07 Perennial allergic rhinitis [id number] J30.89 [id number] BACILIO MENDOZA legal editor [address] [place] [address],[address] [place] [address] 03/09/2024 16:02:14 03/09/2024 16:26:04 Perennial allergic rhinitis [id number] J30.89 [id number] [facility], A Allergy [address] [facility],[address] [place] [address] 03/16/2024 15:47:03 03/16/2024 16:01:25 Perennial allergic rhinitis [id number] J30.89 [id number] MAIRA JACINTO [facility] Allergy [address] [facility],[address] [place] [address] 04/07/2024 15:06:30 04/07/2024 15:09:50 Perennial allergic rhinitis [id number] J30.89 [id number] MAIRA JACINTO [facility] Allergy [address] [facility],[address] [place] [address] 04/15/2024 13:27:11 04/15/2024 13:45:00 Perennial allergic rhinitis [id number] J30.89 [id number] MAIRA JACINTO [facility] Allergy [address] [facility],[address] [place] [address] 04/27/2024 11:49:34 04/27/2024 11:51:35 Perennial allergic rhinitis [id number] J30.89 [id number] BACILIO MENDOZA RN Allergy [address] [place] [address],[address] [place] [address] 05/04/2024 14:53:44 05/04/2024 14:55:37 Perennial allergic rhinitis [id number] J30.89 [id number] [facility], A Allergy [address] [facility],[address] [place] [address] 05/13/2024 15:25:10 05/13/2024 15:26:26 Perennial allergic rhinitis [id number] J30.89 [id number] MAIRA JACINTO, [facility] Allergy [address] [place] [address],[address] [place] [address] 05/19/2024 16:25:31 05/20/2024 11:22:14 Perennial allergic rhinitis [id number] J30.89 [id number] [facility], A Allergy [address] [place] [address],[address] [place] [address] 05/31/2024 11:53:17 05/31/2024 11:54:46 Perennial allergic rhinitis [id number] J30.89 [id number] MAIRA JACINTO, A Allergy [address] [place] [address],[address] [place] [address] 06/07/2024 14:24:19 06/07/2024 14:31:44 Perennial allergic rhinitis [id number] J30.89 [id number] BACILIO MENDOZA RN Allergy [address] [place] [address],[address] [place] [address] 06/14/2024 16:08:01 06/14/2024 16:09:17 Perennial allergic rhinitis [id number] J30.89 [id number] [facility], A Allergy [address] [facility],[address] [place] [address] 06/21/2024 15:40:46 06/21/2024 15:49:36 Allergic rhinitis [id number] J30.9 Perennial allergic rhinitis [id number] J30.89 [id number] MARIA A JIM MD [facility] [place] [address] [facility] [place] [address] 06/27/2024 08:34:26 06/27/2024 09:01:30 Seasonal allergic rhinitis [id number] J30.2 The patient is benefiting from immunother apy and should continue. No local or systemic reactions. [id number] MAIRACecily JACINTO, [facility] Allergy [address] [place] [address],[address] [place] [address] 06/28/2024 15:46:03 06/28/2024 15:48:24 Perennial allergic rhinitis [id number] J30.89 [id number] MAIRA JACINTO [facility] Allergy [address] [place] [address],[address] [place] [address] 07/12/2024 13:43:59 07/12/2024 13:46:38 Perennial allergic rhinitis [id number] J30.89 [id number] [facility] A Allergy [address] [place] [address],[address] [place] [address] 07/19/2024 15:23:04 07/19/2024 15:24:26 Perennial allergic rhinitis [id number] J30.89 [id number] [facility] [address] [place] [address],[address] [place] [address] 08/02/2024 15:03:18 08/02/2024 15:04:45 Perennial allergic rhinitis [id number] J30.89 [id number] BACILIO MENDOZA RN Allergy [address] [place] [address],[address] [place] [address] 08/09/2024 15:21:28 08/09/2024 15:23:02 Perennial allergic rhinitis [id number] J30.89 [id number] [facility] [address] [place] [address],[address] [place] [address] 08/23/2024 14:54:04 08/23/2024 14:55:47 Perennial allergic rhinitis [id number] J30.89 [id number] BACILIO MENDOZA RN Allergy [address] [place] [address],[address] [place] [address] 08/30/2024 13:51:49 08/30/2024 13:53:21 Perennial allergic rhinitis [id number] J30.89 [id number] [facility] JACINTO [facility] Allergy [address] [place] [address],[address] [place] [address] 09/06/2024 13:15:58 09/06/2024 13:17:14 Perennial allergic rhinitis [id number] J30.89 [id number] [facility] Allergy [address] [place] [address],[address] [place] [address] 09/14/2024 10:16:49 09/14/2024 10:17:42 Perennial allergic rhinitis [id number] J30.89 [id number] MAIRA JACINTO, [facility] Allergy [address] [place] [address], [address] [place] [address] 09/21/2024 11:01:38 09/21/2024 11:03:04 Perennial allergic rhinitis [id number] J30.89 [id number] [facility] JACINTO [facility] Allergy [address] [place] [address] it[address] [place] [address] 09/27/2024 15:30:01 09/27/2024 15:32:36 Perennial allergic rhinitis [id number] J30.89 [id number] MAIRA JACINTO, [facility] Allergy [address] [place], [place] [address]T[address] [place] [address] 10/05/2024 13:52:29 10/05/2024 13:53:57 Perennial allergic rhinitis [id number] J30.89 [id number] BACILIO MENDOZA legal editor [address] [place], [place] [address]T[address] [place] [address] 10/11/2024 10:41:49 10/11/2024 10:42:54 Perennial allergic rhinitis [id number] J30.89 [id number] MAIRA JACINTO, [facility] Allergy [address] [place] [address],[address] [place] [address] 10/18/2024 16:36:41 10/18/2024 16:38:14 Perennial allergic rhinitis [id number] J30.89 [id number] [facility] Allergy [address] [place] [address],[address] [place] [address] 10/25/2024 14:48:17 10/25/2024 14:49:58 Perennial allergic rhinitis [id number] J30.89 [id number] MAIRA JACINTO [facility] Allergy [address] [place] [address] 11/01/2024 14:27:47 11/01/2024 14:29:39 Perennial allergic rhinitis [id number] J30.89 [id number] [facility] Allergy [address] [place] [address],[address] [place] [address] 11/08/2024 14:18:50 11/08/2024 14:20:50 Perennial allergic rhinitis [id number] J30.89 [id number] [facility] Allergy [address] [place] [address],[address] [place] [address] 11/15/2024 16:31:53 11/15/2024 16:34:53 Perennial allergic rhinitis [id number] J30.89 [id number] [facility] Allergy [address] [place] [address], [address] [place] [address] 11/22/2024 14:21:01 11/22/2024 14:23:59 Perennial allergic rhinitis [id number] J30.89 [id number] BACILIO MENDOZA RN Allergy [address] [place] [address] [address] [place] [address] 11/29/2024 15:04:20 11/29/2024 15:05:40 Perennial allergic rhinitis [id number] J30.89 [id number] MAIRA JACINTO, [facility] Allergy [address] [place] [address],[address] [place] [address] 12/07/2024 11:04:46 12/07/2024 11:06:12 Perennial allergic rhinitis [id number] J30.89 [id number] BACILIO MENDOZA legal editor [address] [place] [address],[address] [place] [address] 12/13/2024 14:27:44 12/13/2024 14:29:06 Perennial allergic rhinitis [id number] J30.89 [id number] MAIRA JACINTO, [facility] Allergy [address] [place], [place] [address]T[address] [place] [address] 12/21/2024 13:27:18 12/21/2024 13:29:08 Perennial allergic rhinitis [id number] J30.89 [id number] MARIA A JIM MD Allergy 100 [facility],[address] [place] [address] 12/27/2024 11:11:03 12/27/2024 11:14:50 Perennial allergic rhinitis [id number] J30.89 [id number] [facility] A Allergy [address] [facility],[address] [place] [address] 01/05/2025 11:18:13 01/05/2025 11:20:38 Perennial allergic rhinitis [id number] J30.89 [id number] [facility] A Allergy 100 [facility],[address] [place] [address] 01/10/2025 15:42:54 01/10/2025 15:43:59 Perennial allergic rhinitis [id number] J30.89 [id number] [facility] A Allergy [address] [place] [address],[address] [place] [address] 01/17/2025 13:55:01 01/17/2025 13:57:56 Perennial allergic rhinitis [id number] J30.89 [id number] MAIRA JACINTO, [facility] Allergy [address] [place] [address],[address] [place] [address] 01/25/2025 13:57:51 01/25/2025 13:59:48 Perennial allergic rhinitis [id number] J30.89 [id number] [facility] A Allergy [address] [facility],[address] [place] [address] 01/31/2025 13:39:34 01/31/2025 13:41:05 Perennial allergic rhinitis [id number] J30.89 [id number] BACILIO MENDOZA RN Allergy [address] [place] [address],[address] [place] [address] 02/07/2025 11:13:38 02/07/2025 11:15:56 Perennial allergic rhinitis [id number] J30.89 [id number] BACILIO MENDOZA RN Allergy [address] [place] [address],[address] [place] [address] 02/15/2025 11:11:09 02/15/2025 11:12:49 Perennial allergic rhinitis [id number] J30.89 [id number] MAIRA JACINTO A Allergy 100 [facility],[address] [place] [address] 02/22/2025 09:55:51 02/22/2025 10:03:15 Perennial allergic rhinitis [id number] J30.89 [id number] MARIA A JIM MD [facility] [address] [facility] [place] [address] 03/07/2025 07:57:29 03/07/2025 08:29:37 Seasonal allergic rhinitis [id number] J30.2 The patient is benefiting from immunother apy and should continue. Can stop zyrtec if not helping with local reactions which are self limited. Epipen is current. f/u 6 months. [id number] VANESA GILBERTO, RMA Allergy 100 [facility],[address] [place] [address] 03/15/2025 14:06:12 03/15/2025 14:07:29 Perennial allergic rhinitis [id number] J30.89 [id number] MAIRA JACINTO A Allergy [address] [place] [address],[address] [place] [address] 03/21/2025 13:38:43 03/21/2025 13:40:21 Perennial allergic rhinitis [id number] J30.89 [id number] VANESA GILBERTO, RMA Allergy 100 [facility],[address] [place] [address] 04/14/2025 10:23:52 04/14/2025 10:37:24 Perennial allergic rhinitis [id number] J30.89 [id number] [facility], RMA Allergy 100 [facility],[address] [place] [address] 04/20/2025 11:27:23 04/20/2025 11:29:25 Perennial allergic rhinitis [id number] J30.89 [id number] VANESA GILBERTO, RMA Allergy 100 [facility],[address] [place] [address] 05/02/2025 11:53:43 05/02/2025 11:58:04 Perennial allergic rhinitis [id number] J30.89 [id number] MAIRA JACINTO, RMA Allergy 100 [facility],[address] [place] [address] 05/09/2025 11:05:10 05/09/2025 11:08:33 Perennial allergic rhinitis [id number] J30.89 [id number] MAIRA JACINTO, [facility] Allergy 100 [facility],[address] [place] [address] 05/16/2025 13:47:01 05/16/2025 13:48:37 Perennial allergic rhinitis [id number] J30.89 [id number] VANESA MACIAS, A Allergy 100 [facility],[address] [place] [address] 05/23/2025 11:15:37 05/23/2025 11:17:30 Perennial allergic rhinitis [id number] J30.89 Health Concerns Section Related Observation LastModified by Organization Detai ls LastModified Time None Recorded Concern Status LastModified by Organization Details LastModified Time None Recorded Advance Directives Directive None Recorded Payers Insurance Date Sequence Insurance Name Policy Number Policy [id number] Covered Member ID [id number] Member ID Guarantor Name 05/29/2025 1 [facility] [place] [place] [id number] Monica Bonner [id number] Monica Bonner 11/10/2024 1 [facility] [id number] Monica Bonner [id number] Monica Bonner OBGyn Episode No OBEpisode recorded.
== END 2025-05-29 14:55 | disposition home or self-care (01) ==
LOC: HO.HMCHD 13:56
PROVIDERS: PCP Internal Medicine; Visit Provider Internal Medicine
DX: Z00.00 Encounter for general adult medical examination without abnormal findings (principal); G43.909 Migraine, unspecified, not intractable, without status migrainosus; R19.7 Diarrhea, unspecified

== ENCOUNTER → 2025-05-29 13:56 | Outpatient (BNVA) | payer OTHER, MEDICAID, SELFPAY | PROVIDERS: PCP Internal Medicine; Visit Provider Internal Medicine | DX: Z00.00 Encounter for general adult medical examination without abnormal findings (principal); G43.909 Migraine, unspecified, not intractable, without status migrainosus; C50.911 Malignant neoplasm of unspecified site of right female breast; K52.1 Toxic gastroenteritis and colitis; T45.1X5A Adverse effect of antineoplastic and immunosuppressive drugs, initial encounter; Z13.31 Encounter for screening for depression; Z13.39 Encounter for screening examination for other mental health and behavioral disorders | CPT/HCPCS: 96127 ==